=== PATIENT | male | born 1935 | race African-American/Black ===

== ENCOUNTER 2017-04-26 15:57 | Inpatient (IN) ==
[2017-04-26] MEDS ORDERED: ONDANSETRON 4 MG/2 ML VIAL IV PRN (18:24)
[2017-04-26] MEDS ORDERED: ALBUTEROL/IPRATROPIUM 3 ML NEB RESP TX PRN (18:24)
[2017-04-26] MEDS ORDERED: ACETAMINOPHEN 325 MG TABLET PO PRN (18:24)
[2017-04-26] MEDS ORDERED: traMADol 50 MG TABLET PO PRN (18:24)
[2017-04-26] MEDS: SODIUM CHLORIDE 0.45% 1,000 ML IV SCH (18:40)
--- NOTE | 2017-04-26 19:22 | XRay Report ---
History: Shortness of breath Date: 04/26/2017 Study: Chest x-ray PA and lateral Comparison exam: July 25, 2016 The cardiac silhouette is not enlarged. There is no mediastinal mass. There is mild aortic arch calcification. The pulmonary vasculature is not engorged. There are some prominent changes of bullous emphysema. There is mild platelike scarring in the lung bases. There is no gross pneumonia.. Osseous structures are unchanged. Impression: Prominent changes of bullous emphysema. No definite acute inflammatory infiltrate PROCEDURE INTERPRETED AT [facility] DEPARTMENT OF RADIOLOGY Final Report Signed by: Dr. Sara Sow
[2017-04-26 19:27] LABS: Basophils % 0.4 % (0.0-0.8); Eosinophils % 0.6 % (0.00-10.9); Hematocrit 32.3 VOL% (42.0-52.0); Hemoglobin 10.3 GM/DL (14.0-18.0); Immature Granulocytes % 0.4 %; Immature Granulocytes Absolute 0.03 #; Lymphocytes # 1.9 10*3/uL (1.4-4.0); Lymphocytes % 25.8 % (21.2-54.2); Mean Corpuscular HGB Conc 31.9 GM/DL (32-36); Mean Corpuscular Hemoglobin 29 PG (27-34); Mean Platelet Volume 9.1 FL (9.6-12.0); Monocytes # 0.7 10*3/uL (0.11-0.8); Monocytes % 9.9 % (1.7-12.7); Neutrophils # 4.6 10*3/uL (1.4-7.4); Neutrophils % 62.9 % (38.7-73.9); Platelet Count 325 T/CUMM (130-400); Red Blood Count 3.55 MC/CUMM (3.8-5.5); Red Cell Distribution Width 13.9 % (9.3-17.3); White Blood Count 7.3 T/CUMM (4-12)
[2017-04-26 19:58] LABS: Lymphocytes 18 % (20-55); Platelet Estimate Normal; Polychromasia Slight; Segmented Neutrophils 75 % (50-85); Total Cells Counted 100
[2017-04-26 20:01] LABS: Albumin 2.4 G/DL (3.4-5.0); Bilirubin,Total 0.4 MG/DL (0.2-1.0); Calcium 8.7 MG/DL (8.5-10.1); Ferritin 172.6 ng/ml (26-388); Magnesium 2.1 MG/DL (1.8-2.4); Osmolality,Calculated 281.4 MOS/KG (273-304); Potassium 3.8 MMOL/L (3.5-5.1); Prealbumin 13.5 MG/DL (20-40); Thyroid Stimulating Hormone 2.27 uIU/ml (0.358-3.74); Total Protein 8.1 G/DL (6.4-8.3)
[2017-04-26 20:28] LABS: Sedimentation Rate-Westergren 90 MM/HR (0-20)
[2017-04-26 20:59] LABS: Apearance,Urine CLOUDY (Clear); Bacteria,Urine Many /HPF (Few); Bilirubin,Urine Negative (Negative); Blood, Urine Small mg/dL (Negative); Glucose,Urine (UA) Negative (Negative); Ketones,Urine Negative (Negative); Mucus,Urine Occasional /LPF (Occasional); Nitrite,Urine Negative (Negative); Protein,Urine 100 MG/DL; RBC,Urine 58 /HPF (0-4); Urine Color Yellow (Yellow); Urine Specific Gravity 1.014 (1.001-1.035); Urine Urobilinogen < 2.0 EU/DL (0.2-1.0); WBC,Urine 1932 /HPF (0-6)
[2017-04-26 21:03] LABS: Folate 12.2 NG/ML (5.4-24.0)
--- NOTE | 2017-04-26 21:37 | Family Practice History&Phys ---
Assessment and Plan (1) Joint pain probable rheumatoid arthritis Status: Acute Assessment and plan: Patient has significant joint pain and swelling involving multiple joints. Recent lab suggestive of rheumatoid arthritis. Current Visit: Yes (2) Significant weight loss Status: Acute Assessment and plan: Significant weight loss over the last several weeks of unknown etiology. Will begin workup Current Visit: Yes (3) Progressive weakness Status: Acute Assessment and plan: Progressive weakness over the last several weeks unknown etiology Current Visit: Yes (4) Status post carcinoma urinary bladder Status: Chronic Assessment and plan: History of urinary bladder cancer has cystostomy bag present Current Visit: Yes (5) Status post carcinoma prostate Status: Chronic Assessment and plan: History of carcinoma of the prostate Current Visit: Yes (6) Chronic obstructive pulmonary disease Status: Chronic Assessment and plan: We will start on appropriate respiratory treatments Current Visit: Yes History of Present Illness Chief complaint: Weakness, weight loss, severe joint pain History of present illness: Mr. Green is a 81 year old male Patient is an 81-year-old black male well-known to me who is brought in by family stating that he was unable to stand or ambulate due to severe joint pain and stiffnessand. The is also lost 16 pounds in the last few months. Patient has become progressively weaker overall. I did recent lab studies and is worse degrees sedimentation rate was 120.His RA titer was positive but NICOLE was negative. Chest x-ray revealed severe emphysema. CT scan of the abdomen and pelvis on an outpatient basis revealed severe bullous emphysema with chronic scarring and atelectasis. He had minimal left hydronephrosis with dilatation of the left ureter no stones were noted. I had wanted to do further studies and refer to cleat maker but patient refused. His symptoms have significantly worsened in the last several weeks and he is now unable to ambulate or get out of the chair without assistance. He has no appetite and has continued decline. He is now they are in agreement to see a cleat maker but it will take several weeks to obtain an appointment. In view of the overall decline, I have elected to admit for further evaluation therapy. I am uncertain of the weight loss and he may need further GI and other evaluation. In view of history we will admit further evaluation therapy. Home Medications Medication Instructions Recorded Confirmed Type Diclofenac Potassium Tab [Cataflam] 50 mg PO DAILY 04/26/17 04/26/17 History RX: Nabumetone 750 mg PO DAILY 04/26/17 04/26/17 History Sulfameth/Trimeth 800-160 Tab 1 tablet PO BID 04/26/17 04/26/17 History [Bactrim DS Tab] Allergies Allergy/AdvReac Type Severity Reaction Status Date / Time No Known Allergies Allergy Unverified 07/25/16 21:03 Medical,Surgical,& Family Hx - Medical History Cardio: History of: Hypertension HEENT: History of: Ear Problem, Eye Problem Endocrine: History of: Dyslipidemia Rheumatology: History of;: Rheumatoid Arthritis Respiratory: History of: Pneumonia (3 years ago) Genitourinary: History of: Prostate Problems (History of prostate carcinoma), Genitourinary Cancer (History of urinary bladder cancer presently has a cystostomy bag) Gastrointestinal: History of: GI Problems (History of carcinoma of the bladder) Musculoskeletal: History of: Musculoskeletal Problems - Surgical History Thoracic Surgeries: Patient denies;: Lobectomy Neurologic Surgeries: Patient denies: Neurologic Surgery Reproductive Surgeries: Surgical HX of;: Genitourinary Surgery (bladder removal , urostomy), Prostate Surgery (TURP) - Social History Smoking Status: Former smoker Frequency of Alcohol Use: None Type of Drug Use: None Marital Status: Lives With:: Spouse Functional capacity: uses cane/walker Exam - Constitutional Vitals: Period Temp Pulse Resp BP Sys/Chen Pulse Ox Last 24 Hr 96.9 F-98.4 F 84-90 18-20 107-121/61-63 94-97 General appearance: mild distress - Head Head exam: Present: normal inspection - Eye Pupils: Present: DRU - ENT ENT exam: Present: normal exam - Neck Neck exam: Present: normal inspection - Respiratory Respiratory exam: Present: clear to auscultation bilaterally - Cardiovascular Cardiovascular exam: Present: irregular rhythm - GI/Abdominal GI/Abdominal exam: Present: other (Cystoscopy bag present) - Extremities Exam Extremities exam: Present: edema - Back Exam Back exam: Present: muscle spasm - Neurological Exam Neurological exam: Present: alert, oriented X3 - Psychiatric Psychiatric exam: Present: normal affect - Skin Skin exam: Present: normal color Results - Labs CBC & BMP: 04/26/17 19:18 04/26/17 19:18
[2017-04-26] MEDS: DOCUSATE SODIUM 100 MG CAPSULE PO SCH (21:59)
[2017-04-26] MEDS: methylPREDNISolone SOD SUC 40 MG/1 ML VIAL IV SCH (21:59)
--- NOTE | 2017-04-26 22:53 | Ultrasound Report ---
History: Hydronephrosis Date: 04/26/2017 Study: Renal ultrasound bilateral kidneys only Comparison exam: January 03, 2017 Real-time ultrasound images are captured and archived. The right kidney measures 9.4 x 5.0 x 5.0 cm and is minimally hyperechoic to the hepatic parenchyma. There is a 9 mm simple cyst in the mid right kidney. The left kidney measures 9.5 x 6.3 x 5.5 cm and contains a small 8 mm simple cyst at its mid to lower aspect. There is no obvious hydronephrosis. There is no perinephric fluid. There is gross color Doppler flow to either kidney. Impression: No hydronephrosis is identified. Medical renal parenchymal disease of a mild degree. Benign simple cysts PROCEDURE INTERPRETED AT [facility] DEPARTMENT OF RADIOLOGY Final Report Signed by: Dr. Sara Sow
[2017-04-27] MEDS: methylPREDNISolone SOD SUC 40 MG/1 ML VIAL IV SCH ×3 (04:51→20:22)
[2017-04-27 06:04] LABS: Risk Ratio 3.81; VLDL CHOLESTEROL 13.6 MG/DL
[2017-04-27 06:47] LABS: Hematocrit 31.2 VOL% (42.0-52.0); Hemoglobin 10.1 GM/DL (14.0-18.0); Immature Granulocytes % 0.6 %; Immature Granulocytes Absolute 0.03 #; Lymphocytes # 1.1 10*3/uL (1.4-4.0); Lymphocytes % 20.5 % (21.2-54.2); Mean Corpuscular HGB Conc 32.4 GM/DL (32-36); Mean Corpuscular Hemoglobin 29 PG (27-34); Mean Corpuscular Volume 90.4 FL (87-102); Mean Platelet Volume 9.9 FL (9.6-12.0); Monocytes # 0.1 10*3/uL (0.11-0.8); Monocytes % 1.7 % (1.7-12.7); Neutrophils % 77.2 % (38.7-73.9); Platelet Count 326 T/CUMM (130-400); Red Blood Count 3.45 MC/CUMM (3.8-5.5); Red Cell Distribution Width 14.1 % (9.3-17.3); White Blood Count 5.2 T/CUMM (4-12)
[2017-04-27 06:58] LABS: Osmolality,Calculated 282.3 MOS/KG (273-304); Potassium 4.5 MMOL/L (3.5-5.1)
[2017-04-27 07:17] LABS: Atypical Lymphocytes Few; Hypochromasia 1+; Lymphocytes 18 % (20-55); Platelet Estimate Adequate; Segmented Neutrophils 80 % (50-85); Total Cells Counted 100
[2017-04-27] MEDS: SODIUM CHLORIDE 0.45% 1,000 ML IV SCH ×2 (07:50→23:00)
[2017-04-27] MEDS: PANTOPRAZOLE 40 MG TABLET PO SCH (09:55)
[2017-04-27] MEDS: DOCUSATE SODIUM 100 MG CAPSULE PO SCH ×2 (09:55→20:22)
[2017-04-27] MEDS: LEVOFLOXACIN INJ 500 MG in PREMIX 1 EACH IV SCH (18:15)
--- NOTE | 2017-04-27 18:22 | Family Practice Progress Note ---
Family Practice - PN: Subj Interval history: Patient states she feels better this a.m. His joint pain and swelling have significantly improved since starting the steroids. His urine is suggestive of a urinary tract infection. Urine culture is pending. The patient had been on Septra DS for a upper respiratory infection prior to the culture so it may not the groin he bacteria. His other labs are stable except for elevated sedimentation rate and significantly elevated rheumatoid factor. His appetite improved this a.m. and his weight loss may be secondary to the joint pain and weakness. Will have patient increase activity today. We'll start on Levaquin now that cultures have been obtained. We'll otherwise continue present evaluation and treatment plan Exam (Progress Note) - Constitutional Vitals: Period Temp Pulse Resp BP Sys/Chen Pulse Ox Last 24 Hr 96.9 F-97.6 F 61-90 18-20 102-128/53-71 92-95 Results - Labs CBC & BMP: 04/27/17 04:46 04/27/17 04:46 Assessment and Plan (1) Joint pain probable rheumatoid arthritis Status: Acute Assessment and plan: Patient has significant joint pain and swelling involving multiple joints. Recent lab suggestive of rheumatoid arthritis. Current Visit: Yes (2) Significant weight loss Status: Acute Assessment and plan: Significant weight loss over the last several weeks of unknown etiology. Will begin workup Current Visit: Yes (3) Progressive weakness Status: Acute Assessment and plan: Progressive weakness over the last several weeks unknown etiology Current Visit: Yes (4) Status post carcinoma urinary bladder Status: Chronic Assessment and plan: History of urinary bladder cancer has cystostomy bag present Current Visit: Yes (5) Status post carcinoma prostate Status: Chronic Assessment and plan: History of carcinoma of the prostate Current Visit: Yes (6) Chronic obstructive pulmonary disease Status: Chronic Assessment and plan: We will start on appropriate respiratory treatments Current Visit: Yes
[2017-04-28] MEDS: methylPREDNISolone SOD SUC 40 MG/1 ML VIAL IV SCH ×3 (04:37→20:23)
[2017-04-28 06:31] LABS: Basophils % 0.1 % (0.0-0.8); Hemoglobin 9.6 GM/DL (14.0-18.0); Immature Granulocytes % 0.8 %; Immature Granulocytes Absolute 0.11 #; Lymphocytes # 1.3 10*3/uL (1.4-4.0); Lymphocytes % 9.4 % (21.2-54.2); Mean Corpuscular Hemoglobin 29 PG (27-34); Mean Corpuscular Volume 91.2 FL (87-102); Mean Platelet Volume 9.4 FL (9.6-12.0); Monocytes # 0.5 10*3/uL (0.11-0.8); Monocytes % 3.6 % (1.7-12.7); Neutrophils # 12.3 10*3/uL (1.4-7.4); Neutrophils % 86.1 % (38.7-73.9); Platelet Count 330 T/CUMM (130-400); Red Blood Count 3.29 MC/CUMM (3.8-5.5); White Blood Count 14.2 T/CUMM (4-12)
[2017-04-28 06:59] LABS: Hypochromasia Slight; Lymphocytes 6 % (20-55); Platelet Estimate Normal; Segmented Neutrophils 93 % (50-85); Total Cells Counted 100
[2017-04-28 07:10] LABS: Calcium 8.6 MG/DL (8.5-10.1); Potassium 4.3 MMOL/L (3.5-5.1)
--- NOTE | 2017-04-28 08:17 | Family Practice Progress Note ---
Family Practice - PN: Subj Interval history: Patient was admitted with severe weakness weight loss and joint pain. He has lost 18 pounds in the last 6-8 weeks and was unable to ambulate due to joint pain and stiffness. His sedimentation rate and rheumatoid factor are significantly elevated. His joint complaints have progressively gotten worse in the last 6 weeks. I saw him in the clinic 2 weeks ago and tried to arrange a rheumatology appointment but patient refused at that time. The patient should continue to lose weight and was unable to stand or ambulate at time of admission. He apparently has a urinary tract infection and culture is pending. He has had a dramatic improvement since starting on IV steroids. He is now eating joint pain and swelling is almost totally resolved. No question that most of his symptoms are related to his inflammatory process. We will need to check results of urine culture. Will have patient increase activity today and could be discharged over the weekend if improved. If discharge she needs to be discharged on oral prednisone. We are in the process of trying to arrange a rheumatology appointment. Exam (Progress Note) - Constitutional Vitals: Period Temp Pulse Resp BP Sys/Chen Pulse Ox Last 24 Hr 97.3 F-98.3 F 60-90 18-22 102-133/53-70 92-100 Results - Labs CBC & BMP: 04/28/17 06:08 04/28/17 06:08 Assessment and Plan (1) Joint pain probable rheumatoid arthritis Status: Acute Assessment and plan: Patient has significant joint pain and swelling involving multiple joints. Recent lab suggestive of rheumatoid arthritis. Current Visit: Yes (2) Significant weight loss Status: Acute Assessment and plan: Significant weight loss over the last several weeks of unknown etiology. Will begin workup Current Visit: Yes (3) Progressive weakness Status: Acute Assessment and plan: Progressive weakness over the last several weeks unknown etiology Current Visit: Yes (4) Status post carcinoma urinary bladder Status: Chronic Assessment and plan: History of urinary bladder cancer has cystostomy bag present Current Visit: Yes (5) Status post carcinoma prostate Status: Chronic Assessment and plan: History of carcinoma of the prostate Current Visit: Yes (6) Chronic obstructive pulmonary disease Status: Chronic Assessment and plan: We will start on appropriate respiratory treatments Current Visit: Yes
[2017-04-28] MEDS: DOCUSATE SODIUM 100 MG CAPSULE PO SCH ×2 (08:51→20:23)
[2017-04-28] MEDS: PANTOPRAZOLE 40 MG TABLET PO SCH (08:51)
[2017-04-28] MEDS: LEVOFLOXACIN INJ 500 MG in PREMIX 1 EACH IV SCH (20:22)
[2017-04-29] MEDS: SODIUM CHLORIDE 0.45% 1,000 ML IV SCH ×3 (03:00→16:19)
[2017-04-29 04:20] LABS: Basophils % 0.1 % (0.0-0.8); Hematocrit 32.1 VOL% (42.0-52.0); Hemoglobin 10.1 GM/DL (14.0-18.0); Immature Granulocytes % 1.2 %; Immature Granulocytes Absolute 0.18 #; Lymphocytes # 1.7 10*3/uL (1.4-4.0); Lymphocytes % 11.3 % (21.2-54.2); Mean Corpuscular HGB Conc 31.5 GM/DL (32-36); Mean Corpuscular Hemoglobin 29 PG (27-34); Mean Corpuscular Volume 91.2 FL (87-102); Mean Platelet Volume 9.6 FL (9.6-12.0); Monocytes # 0.4 10*3/uL (0.11-0.8); Monocytes % 2.7 % (1.7-12.7); Neutrophils % 84.7 % (38.7-73.9); Platelet Count 381 T/CUMM (130-400); Red Blood Count 3.52 MC/CUMM (3.8-5.5); Red Cell Distribution Width 14.3 % (9.3-17.3); White Blood Count 15.4 T/CUMM (4-12)
[2017-04-29 04:44] LABS: Calcium 8.1 MG/DL (8.5-10.1)
[2017-04-29] MEDS: methylPREDNISolone SOD SUC 40 MG/1 ML VIAL IV SCH ×3 (05:05→20:37)
--- NOTE | 2017-04-29 07:27 | Family Practice Progress Note ---
Family Practice - PN: Subj Interval history: Same this morning. He had an inflammatory arthritis with a elevated sedimentation rate of 130. Does have significant rheumatoid arthritis but the prednisone has helped him immensely. He is alert and are looking at discharging him either later on today or possibly tomorrow but patient is a little bit weak. If he is eating well today and able to sit up and walk will go ahead and discharge. Exam (Progress Note) - Constitutional Vitals: Period Temp Pulse Resp BP Sys/Chen Pulse Ox Last 24 Hr 96.9 F-97.9 F 60-75 18-20 120-136/58-71 90-96 Exam: Generally stable is alert and oriented although he does not hear very well HEENT essentially negative neck is supple trachea midline Vascular rate regular no gallop or rub Lungs clear without any respiratory distress or shortness of breath Abdomen soft nondistended Extremities no clubbing cyanosis or Results - Labs CBC & BMP: 04/29/17 03:48 04/29/17 03:48 Assessment and Plan (1) Joint pain probable rheumatoid arthritis Status: Acute Assessment and plan: 04/29/2017: We will continue prednisone and hopefully patient will be strong enough to be discharged today and at least minimal Current Visit: Yes
[2017-04-29] MEDS: DOCUSATE SODIUM 100 MG CAPSULE PO SCH ×2 (09:23→20:39)
[2017-04-29] MEDS: PANTOPRAZOLE 40 MG TABLET PO SCH (09:23)
[2017-04-29] MEDS: LEVOFLOXACIN INJ 500 MG in PREMIX 1 EACH IV SCH (20:41)
[2017-04-30] MEDS: methylPREDNISolone SOD SUC 40 MG/1 ML VIAL IV SCH (06:11)
[2017-04-30 07:48] VITALS: BP 152/84
[2017-04-30] MEDS: PANTOPRAZOLE 40 MG TABLET PO SCH (08:18)
[2017-04-30] MEDS: DOCUSATE SODIUM 100 MG CAPSULE PO SCH (08:18)
--- NOTE | 2017-04-30 08:49 | Discharge Summary ---
Hospital Course - Hospital Course Hospital Course: Elderly black male came into the hospital with severe arthritis and also an 18 pound weight loss due to this with decline. He had a severe inflammatory process going on with elevated ESR of around 130. And his rheumatoid factor was elevated. Has not seen her outpatient volleyball referee but we are trying to get set up to get this done. The goal in the hospital was get his inflammatory arthritis under control which has been done, he is now stable and ambulating and able to go to the bathroom now etc. We are going to discharge him and have him see his primary doctor on oral steroids as well as NSAIDs and get him set up to see the volleyball referee as noted. Diagnosis - Discharge Diagnosis (1) Joint pain probable rheumatoid arthritis Status: Acute Discharge Plan - Discharge Data Disposition: Disch To Home/Self Care Condition at Discharge: Stable Discharge Diet: advance to your usual diet Activity: resume usual activities as tolerated Hygiene: no restrictions Weight Bearing at Discharge: weight bear as tolerated Driving: not until seen by doctor Contact your physician if you experience:: fever over 101, Shortness of breath, pain uncontrolled by pain medications - Discharge Medications New Acetaminophen Tab [Tylenol Tab] 650 mg PO Q6H PRN tablet PRN Reason: Fever, Headache, Mild Pain Pantoprazole Tab [Protonix Tab] 40 mg PO DAILY #30 tablet traMADol TAB [Ultram] 50 mg PO Q6H PRN #30 tablet PRN Reason: Pain predniSONE TAB [PredniSONE] 10 mg PO DIRECTED #45 tablet Continue Nabumetone 750 mg PO DAILY Discontinued Diclofenac Potassium Tab [Cataflam] 50 mg PO DAILY - Follow Up or Referral Follow Up: Adam Castaneda DO [Primary Care Provider] - 1 Month - Forms/Instructions Exam - Constitutional Vitals: Period Temp Pulse Resp BP Sys/Chen Pulse Ox Last 24 Hr 97.2 F-97.9 F 61-79 18-22 133-161/69-85 90-100 Discharge Results Procedures and tests throughout hospitalization: Pending Orders 04/26/17 19:18 Blood Culture Stat Labs on day of discharge: Labs from last 24 hours 04/30/17 01:08 POC Glucose 128 H Preliminary micro results at discharge 04/26/17 19:18 Blood Culture - Preliminary Blood No growth at 3 days 04/26/17 19:18 Blood Culture - Preliminary Blood No growth at 3 days DS: Provider Date of admission: 04/26/17 16:07 Primary care physician: Adam Castaneda DO Attending physician on admission: Adam Castaneda DO Consults: 04/26/17 17:10 Consult to Dietitian [CONS] Routine Reason for Dietitian: Other Discharging clinician: Darek Bullock DO
--- NOTE | 2017-05-08 16:31 | Physician Query Form ---
CLICK EDIT DOCUMENT TO SELECT QUERY ANSWER --> OK --> SIGN Jacqueline Che RN, CCDS Certified Clinical Chief Green Officer W) [phone] (f) [phone] [email or web address] PROVIDERS: Make your selection(s) from the choices in EACH section by typing an "x" and enter comments in the comment section. Please use your independent medical judgment in providing your response. This request does not imply that any particular answer is desired or expected. CLINICAL INDICATORS: (Providers should not edit this section) "His urine is suggestive of a urinary tract infection. Urine culture is pending." Urine C&S grew E. Coli >100,000 colony count, treated w/ IV Levaquin Based on the above, could you clarify the appropriate diagnosis, if significant , that supports the above abnormalities and additional evaluation, monitoring, and/or treatment rendered: ( x) Patient was treated for E. Coli UTI ( ) UTI was ruled out ( ) Other, please specify: ( ) Clinically unable to determine COMMENTS: PLEASE ALSO DOCUMENT RESPONSE IN PROGRESS NOTES AND/OR DISCHARGE SUMMARY Use of terms such as suspected, likely, or probable (associated with a specific diagnosis that is being evaluated, monitored, or treated as if it exists) are acceptable and can be restated in the discharge summary if not ruled out. MTDD
== END 2017-04-30 09:45 | disposition home or self-care (01) | DRG 546 ==
LOC: N.2E 16:07
PROVIDERS: ADMIT Family Medicine; ATTEND Family Medicine

== ENCOUNTER 2017-06-09 09:03 | Inpatient (IN) ==
[2017-06-09] MEDS ORDERED: SODIUM CHLORIDE 0.9% 1,000 ML IV STA ×2 (09:57→11:26)
[2017-06-09] MEDS ORDERED: cefTRIAXone 1,000 MG in SODIUM CHLORIDE 0.9% 100 ML IV STA (09:57)
--- NOTE | 2017-06-09 10:02 | EKG Report ---
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
[2017-06-09 10:03] LABS: Basophils % 0.1 % (0.0-0.8); Eosinophils % 0.1 % (0.00-10.9); Hematocrit 41.4 VOL% (42.0-52.0); Hemoglobin 13.7 GM/DL (14.0-18.0); Immature Granulocytes % 0.8 %; Immature Granulocytes Absolute 0.15 #; Lymphocytes # 1.5 10*3/uL (1.4-4.0); Lymphocytes % 8.5 % (21.2-54.2); Mean Corpuscular HGB Conc 33.1 GM/DL (32-36); Mean Corpuscular Hemoglobin 30 PG (27-34); Mean Corpuscular Volume 91.4 FL (87-102); Mean Platelet Volume 9.1 FL (9.6-12.0); Monocytes # 0.8 10*3/uL (0.11-0.8); Monocytes % 4.3 % (1.7-12.7); Neutrophils # 15.5 10*3/uL (1.4-7.4); Neutrophils % 86.2 % (38.7-73.9); Platelet Count 240 T/CUMM (130-400); Red Blood Count 4.53 MC/CUMM (3.8-5.5); Red Cell Distribution Width 19.9 % (9.3-17.3)
[2017-06-09 10:12] LABS: Apearance,Urine CLOUDY (Clear); Bacteria,Urine Moderate /HPF (Few); Bilirubin,Urine Negative (Negative); Blood, Urine Moderate mg/dL (Negative); Glucose,Urine (UA) Negative (Negative); Ketones,Urine 5 mg/dL (Negative); Mucus,Urine Occasional /LPF (Occasional); Nitrite,Urine Positive (Negative); Protein,Urine 30 MG/DL; RBC,Urine 128 /HPF (0-4); Urine Color Yellow (Yellow); Urine Specific Gravity 1.011 (1.001-1.035); WBC,Urine 73 /HPF (0-6)
[2017-06-09 10:21] LABS: Lactic Acid 1.5 MMOL/L (0.4-2.0)
[2017-06-09] MEDS ORDERED: cefTRIAXone 1,000 MG VIAL ONE (10:22)
[2017-06-09 10:29] LABS: Allen Test Positive
[2017-06-09 10:30] LABS: ABG Base Excess -0.6 MMOL/L (-2.5-2.5); ABG HCO3 23.9 MMOL/L (20-26); ABG Oxygen Saturation 95.4 % (95-100); ABG PCO2 25.9 MM HG (35-48); ABG PH 7.515 (7.35-7.45); ABG PO2 79.3 MM HG (80-95)
--- NOTE | 2017-06-09 10:34 | XRay Report ---
XR chest 1V portable Indication: Cough, shortness of breath Comparison: Chest x-ray dated April 26, 2017 Technique: Single frontal view of the chest. Findings: The cardiomediastinal silhouette is stable in configuration. Chronic/emphysematous change of the lungs. There is patchy opacification of the left lower lung suspicious for pneumonia. Visualized osseous and surrounding soft tissue structures appear grossly unchanged. IMPRESSION: As above. PROCEDURE INTERPRETED AT [facility] DEPARTMENT OF RADIOLOGY Final Report Signed by: Dr Ambrocio Allen
[2017-06-09 10:37] LABS: Albumin 2.8 G/DL (3.4-5.0); Osmolality,Calculated 273.1 MOS/KG (273-304); Potassium 3.9 MMOL/L (3.5-5.1); Total Protein 7.5 G/DL (6.4-8.3)
--- NOTE | 2017-06-09 12:44 | Emergency Department Note ---
Semaj Stubbs Manpreet, am scribing for, and in the presence of, Ibrahima Torres Jr., MD 10:01. Brian Stubbs Marvin Jr., MD, personally performed the services described in this documentation, ascribed by Henry Cha in my presence, and it is both accurate and complete . Arrival - Arrival Chief Complaint: Shortness of Breath Stated Complaint: fever,weakness,spitting up blood ED Nursing Triage Note: Fever with generalized weakness and coughing up bright red blood Mode of Arrival: Wheelchair Limitations: No Limitations Source: Patient, Family - History of Present Illness HPI Narrative: Pt is a 82 y/o male who presents to the ED with CC of having a fever since yesterday. Pt is accompanied by his daughter, who is his main historian. The daughter states she went to check on the pt this AM and took a temperature which was 101.6 F. The repeat temperature after 45 minutes was 98 F. Pt lives with his and has been appearing more weak than usual to the family. The pt has lost 20 pounds in the last 4-6 months. Pt is also SOB and the daughter reports the pt coughing up blood. The daughter states there was only blood present in the cough discharge and was bright red. Pt's PCP is Dr. Castaneda who told the daughter to bring the pt to the ED. No other pains/complaints reported to the ED. Onset (ago): day(s) (06/08/17) Consistency: constant Severity: moderate Severity scale (1-10): 3 Allergies/Adverse Reactions: Allergies Allergy/AdvReac Type Severity Reaction Status Date / Time No Known Allergies Allergy Unverified 07/25/16 21:03 Home Medications: Home Medications Medication Instructions Recorded Confirmed Type Nabumetone 750 mg PO DAILY 04/26/17 04/26/17 History Acetaminophen Tab [Tylenol Tab] 650 mg PO Q6H PRN tablet 04/30/17 Rx Pantoprazole Tab [Protonix Tab] 40 mg PO DAILY #30 tablet 04/30/17 Rx predniSONE TAB [PredniSONE] 10 mg PO DIRECTED #45 tablet 04/30/17 Rx traMADol TAB [Ultram] 50 mg PO Q6H PRN #30 tablet 04/30/17 Rx Review of System - Review of System 12 point system: reviewed and no additional remarkable complaints except as stated - Review of System Constitutional: Present: chills, fever, weakness, weight loss. Absent: diaphoresis Head/Ears/Nose/Throat: Absent: sore throat Respiratory: Present: cough (With blood present), respiratory distress Cardiovascular: Absent: chest pain Gastrointestinal: Absent: abdominal pain, nausea, vomiting, hematemesis Genitourinary male: Absent: dysuria Neurological: Absent: headache, weakness, numbness, paresthesias, confusion Medical,Surgical,& Family Hx - Medical History Cardio: History of: Hypertension HEENT: History of: Ear Problem, Eye Problem Endocrine: History of: Dyslipidemia Rheumatology: History of;: Rheumatoid Arthritis Respiratory: History of: Pneumonia (3 years ago) Genitourinary: History of: Prostate Problems (History of prostate carcinoma), Genitourinary Cancer (History of urinary bladder cancer presently has a cystostomy bag) Gastrointestinal: History of: GI Problems (History of carcinoma of the bladder) Musculoskeletal: History of: Musculoskeletal Problems - Surgical History Thoracic Surgeries: Patient denies;: Lobectomy Neurologic Surgeries: Patient denies: Neurologic Surgery Reproductive Surgeries: Surgical HX of;: Genitourinary Surgery (bladder removal , urostomy), Prostate Surgery (TURP) - Social History Smoking Status: Never smoker Frequency of Alcohol Use: None Type of Drug Use: None Exam Physical Examination: General: Well-developed well-nourished, no apparent distress. Vital signs reviewed which shows a low blood pressure, low O2 sats and tachycardia Head: Normocephalic, atraumatic. Eyes: PERRLA, EOMI. Nose: No obvious acute deformities or discharge. Mouth: No obvious acute injury. Neck: Full range of motion without obvious pain. No midline tender to palpation. Lymphatic: no significant lymphadenopathy noted. Lungs: Clear to auscultation bilaterally, normal and equal air movement bilaterally, no obvious rales or wheezing. Heart: Tachycardia, no obvious mummers. Abdomen: Soft nontender, nondistended, normal active bowel sounds. Urethrostomy bag noted. Skin: No obivous acute lesions noted Musculoskeletal: No gross deformities. Neurological: No focal findings, cranial nerves II through XII grossly normal. Psychiatric: Appropriate mood.. : Deferred Vital Signs: Vital Signs Temperature 99.9 F H 06/09/17 09:30 Pulse Rate 83 06/09/17 12:00 Respiratory Rate 19 06/09/17 12:00 Blood Pressure 96/59 06/09/17 12:00 O2 Sat by Pulse Oximetry 97 06/09/17 12:00 Course Course Narrative: Differential diagnosis: There seems to be an obvious infection and this likely could be pneumonia or urinary tract infection with sepsis - Reevaluation(s) Reevaluation #1: Patient seems to look more stable than his vitals look. his blood pressures 84/ 56, heart rate 88, O2 sat 97%, patient seems to be alert and interactive and in no distress. I discussed this patient with Dr. Ann who accepts the patient for admission to the ICU for Dr. Castaneda Time: 12:39 Results - Labs CBC & BMP: 06/09/17 09:53 06/09/17 09:53 Lab Results: I have reviewed the patients labs Labs: Laboratory Tests 06/09/17 06/09/17 06/09/17 09:53 09:53 09:53 WBC 18.0 H RBC 4.53 Hgb 13.7 L Hct 41.4 L MCV 91.4 MCH 30 MCHC 33.1 RDW 19.9 H Plt Count 240 MPV 9.1 L Neut % (Auto) 86.2 H Lymph % (Auto) 8.5 L Cecil % (Auto) 4.3 Eos % (Auto) 0.1 Baso % (Auto) 0.1 Neut # (Auto) 15.5 H Lymph # (Auto) 1.5 Cecil # (Auto) 0.8 Eos # (Auto) 0.0 Baso # (Auto) 0.0 Immature Gran % 0.8 Nucleated RBC % 0.0 Immature Gran # 0.15 Nucleated RBCs # 0.00 Immature Plt Fraction 0.0 Lactic Acid 1.5 Urine Color Yellow Urine Appearance Cloudy Urine pH 7.0 Ur Specific [place] 1.011 Urine Protein 30 Urine Glucose (UA) Negative Urine Ketones 5 Urine Blood Moderate Urine Nitrate Positive H Urine Bilirubin Negative Urine Urobilinogen 2.0 H Urine Leukocytes Moderate H Urine RBC 128 Urine WBC 73 Urine Bacteria Moderate Urine Mucus Occasional Ur Culture Indicated? Results to follow Laboratory Tests 06/09/17 10:16 ABG pH 7.515 H ABG pCO2 25.9 L ABG pO2 79.3 L ABG HCO3 23.9 ABG Total CO2 18.0 L ABG O2 Saturation 95.4 ABG Base Excess -0.6 FiO2 32.00 Laboratory Tests 06/09/17 09:53 Sodium 135 L Potassium 3.9 Chloride 104 Carbon Dioxide 23 Anion Gap 11.9 BUN 23 H Creatinine 1.10 GFR Calculation 79 BUN/Creatinine Ratio 20.00 Glucose 92 Calculated Osmolality 273.1 Lactic Acid 1.5 Calcium 9.0 Total Bilirubin 1.00 AST 11 ALT 20 Alkaline Phosphatase 56 Total Protein 7.5 Albumin 2.8 L Globulin 4.7 H Albumin/Globulin Ratio 0.5 L - EKG EKG results: interpreted by ERMD (Heart rate 105, normal sinus rhythm, no obvious acute ST changes, nonspecific EKG) - Diagnostic Findings Procedure: Chest x-ray: report reviewed by me, image reviewed by me (The cardiomediastinal silhouette is stable in configuration. Chronic/emphysematous change of the lungs. There is patchy opacification of the left lower lung suspicious for pneumonia. Visualized osseous and surrounding soft tissue structures appear grossly unchanged.) Critical Care Time Critical Care Time: Yes Total Critical Care Time: 32 Attestation: Hypotensive patient that is septic. Requiring prolonged patient care time, documentation, discussing with multiple family members for additional information, patient is full code at this time per family Disposition Clinical Impression: Pneumonia, Urinary tract infection, Sepsis, Hypotension Case discussed with: patient, patient's family Disposition: Still a Patient Condition: Guarded Time of Disposition: 12:44
[2017-06-09 14:12] LABS: Troponin I Only < 0.015 NG/ML (0.00-0.045)
[2017-06-09] MEDS ORDERED: ONDANSETRON 4 MG/2 ML VIAL IV PRN (14:20)
[2017-06-09] MEDS ORDERED: ACETAMINOPHEN 325 MG TABLET PO PRN (14:20)
--- NOTE | 2017-06-09 14:59 | Family Practice History&Phys ---
Assessment and Plan (1) Left lower lobe pneumonia Status: Acute Assessment and plan: 06/09/2017: Cultures of blood been obtained. His history of hemoptysis I will consult pulmonary. Current Visit: Yes (2) Hemoptysis Status: Acute Assessment and plan: 06/09/2017: Will consult pulmonary. Current Visit: Yes (3) UTI (urinary tract infection) Status: Acute Assessment and plan: 06/09/2017: Patient begun on IV Levaquin. Cultures are pending. Current Visit: Yes (4) History of bladder cancer Status: Chronic Current Visit: Yes History of Present Illness Chief complaint: Fever, chills and weakness History of present illness: Mr. Green is a 82 year old male Patient 82-year-old black male who is brought to the emergency room by family when they found that he was not his normal responsive self. He was found to have a temperature 101.6 at home and work over the emergency room found to have left lower lobe pneumonia as well as pyuria was 73 white cells per high-powered field. Patient states he has had some urinary frequency but has not seen any hematuria. Family relates that he has had some hemoptysis which is described is some bloody mucus. Patient has no history of lung cancer. He has had a previous history of bladder cancer and had a cholecystectomy he told me 16 years ago. He denies any other malignancies. States he is not having any pain in his chest but he has had a productive cough. Patient found to be hypotensive in the emergency room with a blood pressure as low as 81/57. It was elected placement intensive care and he was started on IV Rocephin and Zithromax Home Medications Medication Instructions Recorded Confirmed Type Nabumetone 750 mg PO DAILY 04/26/17 04/26/17 History Acetaminophen Tab [Tylenol Tab] 650 mg PO Q6H PRN tablet 04/30/17 Rx Pantoprazole Tab [Protonix Tab] 40 mg PO DAILY #30 tablet 04/30/17 Rx predniSONE TAB [PredniSONE] 10 mg PO DIRECTED #45 tablet 04/30/17 Rx traMADol TAB [Ultram] 50 mg PO Q6H PRN #30 tablet 04/30/17 Rx Allergies Allergy/AdvReac Type Severity Reaction Status Date / Time No Known Allergies Allergy Unverified 07/25/16 21:03 - Constitutional Constitutional: Present: chills, fatigue, fever(s), weakness - EENT Eyes: Absent: blurry vision, loss of vision Ears: Absent: decreased hearing, ear pain Nose, mouth and throat: Absent: hoarseness, sinus pressure, sore throat - Cardiovascular Cardiovascular: Absent: chest pain at rest, chest pain with activity, orthopnea , palpitations, PND - Respiratory Respiratory: Present: cough, dyspnea, dyspnea on exertion. Absent: wheezing - Gastrointestinal Gastrointestinal: Absent: abdominal pain, diarrhea, dyspepsia, nausea, vomiting - Genitourinary Genitourinary: Present: dysuria, urinary frequency. Absent: hematuria - Musculoskeletal Musculoskeletal: Absent: arthralgias, back pain - Neurological Neurological: Present: as per HPI, confusion. Absent: focal weakness, numbness , paresthesias - Psychiatric Psychiatric: Present: confusion. Absent: anxiety - Endocrine Endocrine: Present: fatigue. Absent: polydipsia, polyphagia - Hematologic/Lymphatic Hematologic/Lymphatic: Absent: easy bleeding, easy bruising Medical,Surgical,& Family Hx - Medical History Cardio: History of: Hypertension HEENT: History of: Ear Problem, Eye Problem Endocrine: History of: Dyslipidemia Rheumatology: History of;: Rheumatoid Arthritis Respiratory: History of: Pneumonia (3 years ago) Genitourinary: History of: Prostate Problems (History of prostate carcinoma), Genitourinary Cancer (History of urinary bladder cancer presently has a cystostomy bag) Gastrointestinal: History of: GI Problems (History of carcinoma of the bladder) Musculoskeletal: History of: Musculoskeletal Problems - Surgical History Thoracic Surgeries: Patient denies;: Lobectomy Neurologic Surgeries: Patient denies: Neurologic Surgery Reproductive Surgeries: Surgical HX of;: Genitourinary Surgery (bladder removal , urostomy), Prostate Surgery (TURP) - Family History Family History: noncontributory - Social History Smoking Status: Never smoker Frequency of Alcohol Use: None Type of Drug Use: None Exam - Constitutional Vitals: Period Temp Pulse Resp BP Sys/Chen Pulse Ox Last 24 Hr 99.9 F-99.9 F 70-120 16-22 81-97/52-68 87-99 Exam: General: Objective patient is a well-developed black male in no acute distress. Patient is able give good history, is in a state of good humor and is entertaining the nurses. HEENT: Pupils equal and reactive to light. Patent nares and airway Neck: No meningismus, adenopathy, thyromegaly. There are no auscultated carotid bruits. Cardiovascular: Regular rhythm. No murmurs or gallops Chest: Patient's noted to have left basilar rhonchi and rales posteriorly. Abdomen: Soft nontender to palpation No masses, rebound, guarding or tenderness. Patient has ileostomy bag in the right lower quadrant Neuro: Cranial nerves intact and DTRs and strength symmetric in all extremities. Patient is able to follow commands accurately and is able to give a decent history. Dermatologic: No evidence of abnormal lesions or masses. Musculoskeletal: There is no joint swelling or tenderness or deformity. Extremities: There is no calf swelling or tenderness. Results - Labs CBC & BMP: 06/09/17 09:53 06/09/17 09:53 Quality Measures - Stroke Symptom Onset Unknown: No
[2017-06-09] MEDS: DEXTROSE 5% NACL 0.45% 1,000 ML IV SCH ×2 (15:00→22:06)
[2017-06-09] MEDS: AZITHROMYCIN INJ 500 MG in SODIUM CHLORIDE 0.9% 250 ML IV SCH (15:39)
[2017-06-10] MEDS ORDERED: traMADol 50 MG TABLET PO PRN (05:51)
[2017-06-10] MEDS: DEXTROSE 5% NACL 0.45% 1,000 ML IV SCH ×3 (06:35→15:41)
--- NOTE | 2017-06-10 07:03 | Family Practice Progress Note ---
Family Practice - PN: Subj Interval history: Patient states he had a good night and nursing staff states his blood pressures been hovering around 90/60. His heart rates normal his oxygen saturation is good. He is awake, alert and quite talkative. He states he is not having any trouble breathing and I think he can go to the floor. Repeat chest x-ray is pending. Exam (Progress Note) - Constitutional Vitals: Period Temp Pulse Resp BP Sys/Chen Pulse Ox Last 24 Hr 97 F-101.4 F 63-120 12-28 81-133/51-86 87-100 Exam: Objective a well-developed pleasant gentleman is awake alert and able to give good history. He has no dyspnea at rest. Cardiovascular: Heart rates regular without murmurs or gallops. Respiratory: He does have left basilar rales posteriorly. Abdomen: Abdomen soft and nontender to palpation. Extremities: Is no calf swelling or tenderness. Results - Labs CBC & BMP: 06/09/17 09:53 06/09/17 09:53 Lab Results: I have reviewed the past 24 hour labs Assessment and Plan (1) Left lower lobe pneumonia Status: Acute Assessment and plan: 06/09/2017: Cultures of blood been obtained. His history of hemoptysis I will consult pulmonary. 06/10/2017: Patient is doing well clinically. We will repeat his chest x-ray this morning. Current Visit: Yes (2) Hemoptysis Status: Acute Assessment and plan: 06/09/2017: Will consult pulmonary. 06/10/2017: Pulmonary has been consulted. Current Visit: Yes (3) UTI (urinary tract infection) Status: Acute Assessment and plan: 06/09/2017: Patient begun on IV Levaquin. Cultures are pending. 06/10/2017: Cultures are pending. Current Visit: Yes (4) History of bladder cancer Status: Chronic Current Visit: Yes Quality Measures - Stroke Symptom Onset Unknown: No
[2017-06-10] MEDS: predniSONE 10 MG TABLET PO SCH ×3 (09:05→20:55)
[2017-06-10] MEDS: cefTRIAXone 1,000 MG in SODIUM CHLORIDE 0.9% 100 ML IV SCH (09:06)
--- NOTE | 2017-06-10 09:08 | XRay Report ---
XR chest 1V portable Indication: Pneumonia. Chest one view: Comparison yesterday. Increasing infiltrates in the lung bases noted, especially on the left, with the left hemidiaphragm now almost completely obscured. 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 Heart size remains normal. Impression: Worsening bibasilar infiltrates, especially on the left. PROCEDURE INTERPRETED AT [facility] DEPARTMENT OF RADIOLOGY Final Report Signed by: Andrez Heaton M.D.
[2017-06-10] MEDS: AZITHROMYCIN INJ 500 MG in SODIUM CHLORIDE 0.9% 250 ML IV SCH (14:23)
[2017-06-11] MEDS: DEXTROSE 5% NACL 0.45% 1,000 ML IV SCH ×3 (05:15→08:48)
[2017-06-11] MEDS ORDERED: ACETAMINOPHEN 325 MG TABLET PO PRN (07:24)
--- NOTE | 2017-06-11 07:26 | Family Practice Progress Note ---
Family Practice - PN: Subj Interval history: Patient stated he had a good night and his appetite has improved. Patient states he got up this morning and bathed and shaved himself. He feels like he is back to his old self. He denies any dyspnea is not having any abdominal pain. Chest x-ray yesterday showed some worsening of his infiltrates but he is certainly improved clinically. His urine culture is positive for E. coli with sensitivities pending. I will repeat an x-ray of his chest in the morning. Exam (Progress Note) - Constitutional Vitals: Period Temp Pulse Resp BP Sys/Chen Pulse Ox Last 24 Hr 97.1 F-98.8 F 58-91 18-30 99-151/53-70 94-99 Exam: Objective a well-developed pleasant gentleman is awake alert and able to give good history. He has no dyspnea at rest. Cardiovascular: Heart rates regular without murmurs or gallops. Respiratory: He does have left basilar rales posteriorly. Abdomen: Abdomen soft and nontender to palpation. Extremities: Is no calf swelling or tenderness. Results - Labs CBC & BMP: 06/09/17 09:53 06/09/17 09:53 Lab Results: I have reviewed the past 24 hour labs Assessment and Plan (1) Left lower lobe pneumonia Status: Acute Assessment and plan: 06/09/2017: Cultures of blood been obtained. His history of hemoptysis I will consult pulmonary. 06/10/2017: Patient is doing well clinically. We will repeat his chest x-ray this morning. 06/11/2017: Patient is improved clinically. He has no dyspnea at rest. Current Visit: Yes (2) Hemoptysis Status: Acute Assessment and plan: 06/09/2017: Will consult pulmonary. 06/10/2017: Pulmonary has been consulted. 06/11/2017: Patient continues to have some blood-tinged sputum. Current Visit: Yes (3) UTI (urinary tract infection) Status: Acute Assessment and plan: 06/09/2017: Patient begun on IV Levaquin. Cultures are pending. 06/10/2017: Cultures are pending. 06/11/2017: Urine culture positive for E. coli with sensitivities pending. Current Visit: Yes (4) History of bladder cancer Status: Chronic Current Visit: Yes Quality Measures - Stroke Symptom Onset Unknown: No
[2017-06-11] MEDS: cefTRIAXone 1,000 MG in SODIUM CHLORIDE 0.9% 100 ML IV SCH (08:44)
[2017-06-11] MEDS: predniSONE 10 MG TABLET PO SCH ×3 (08:44→21:51)
[2017-06-11] MEDS: PANTOPRAZOLE 40 MG TABLET PO SCH (08:44)
--- NOTE | 2017-06-11 08:53 | Pulmonology Consult Note ---
Assessment and Plan (1) Pneumonia Status: Acute Assessment and plan: Patient clinically and radiographically appears to have a commnity acquired pnuemonia. He is improving on antibiotics. Blood tinged sputum can certainly occur in this setting. However will get a chest CT to ensure there are no obvious endobronchial lesions, lung nodules/masses or other obvious cause of hemoptysis. If it persists and does not resolved with treatment of pneumonia, patient will need to undergo bronchoscopy. Dr Giang to assume care tomorrow Current Visit: Yes (2) Hemoptysis Status: Acute Current Visit: Yes History of Present Illness History of present illness: Mr. Green is a 82 year old male who was admitted for pneumonia 3 days ago. He endorsed some blood tinged sputum so pulmonary was consulted for further evaluation. Patient endorses getting sick about a week ago with cough, blood tinged sputum, fever and shortness of breath. He was admitted here and CXR was consistent with pnuemonia. He was started on antibiotics and has had significant clinical improvement. Patient is aformer smoker, quit in 1993. He denies ever being diagnosed with COPD or emphysema. Does not use inhalers and does not normally have any pulmonary complaints Home Medications Medication Instructions Recorded Confirmed Type Nabumetone 750 mg PO DAILY 04/26/17 04/26/17 History Acetaminophen Tab [Tylenol Tab] 650 mg PO Q6H PRN tablet 04/30/17 Rx Pantoprazole Tab [Protonix Tab] 40 mg PO DAILY #30 tablet 04/30/17 Rx traMADol TAB [Ultram] 50 mg PO Q6H PRN #30 tablet 04/30/17 06/10/17 Rx Folic Acid Tab 1 mg PO DAILY 06/09/17 06/09/17 History Methotrexate Tab 10 mg PO Q7DAY 06/09/17 06/09/17 History Multivit-Min/FA/Lycopen/Lutein 1 each PO DAILY 06/09/17 06/09/17 History [Centrum Silver Men Tablet] Vit B Comp/C/FA/Iron/Vit E 1,000 each PO DAILY 06/09/17 06/09/17 History [Vitamin B Complex Tablet] predniSONE TAB [PredniSONE] 15 mg PO DAILY 06/09/17 06/09/17 History Guaifenesin/Phenylephrine HCl 1 each PO QID PRN 06/10/17 06/10/17 History [Deconex IR 380/10] Allergies Allergy/AdvReac Type Severity Reaction Status Date / Time No Known Allergies Allergy Unverified 07/25/16 21:03 - Constitutional Constitutional: Absent: fever(s), night sweats, other - EENT Eyes: Present: as per HPI - Cardiovascular Cardiovascular: Absent: dyspnea, dyspnea on exertion - Respiratory Respiratory: Present: cough, change in phlegm color Exam (Pulmonay) H&P - Constitutional Vitals: Period Temp Pulse Resp BP Sys/Chen Pulse Ox Last 24 Hr 96.8 F-98.8 F 64-91 18-30 99-151/53-70 94-99 General appearance: normal weight, no acute distress - Head Head exam: Present: normal inspection - Neck Neck exam: Present: normal inspection. Absent: lymphadenopathy - Respiratory Respiratory exam: Present: clear to auscultation bilaterally - Cardiovascular Cardiovascular exam: Present: regular rate and rhythm - GI/Abdominal GI/Abdominal exam: Present: normal bowel sounds Medical,Surgical,& Family Hx - Medical History Cardio: History of: Hypertension No history of: Aneurysm, Cardiac Dysrhythmia, Cerebrovascular Disease, Congenital Heart Disease, CHF, CAD, [place], Pacemaker, PVD, Valvular Heart Disease, Cardiovascular Problems Psychological: No history of: Anxiety Disorders, ADHD, Behavior Problems, Bipolar Disorder, Depression, Previous Suicide Attempt, Psychiatric/Substance Abuse Tx, Schizophrenia, Psychiatric Problems Neurology: No history of: Brain Aneurysm, Cerebral Hemorrhage, Cerebrovascular Accident , Cerebral Palsy, Dementia, Migraine, Multiple Sclerosis, Parkinson's Disease, Peripheral Neuropathy, Seizures, TIA, Vertigo, Neurologocal Cancer HEENT: History of: Ear Problem, Eye Problem, Glaucoma (3 YEARS AGO) Endocrine: History of: Dyslipidemia No history of: Adrenal Disease, Diabetes Mellitus (IDDM), Diabetes Mellitus ( NIDDM), Thyroid Disorder, Endocrine Cancer, Endocrine Problems Rheumatology: History of;: Rheumatoid Arthritis No history of;: Psoriasis Respiratory: History of: Pneumonia (3 years ago) No history of: Asthma, Bronchitis, Obstructive Sleep Apnea, Pulmonary Embolism, Pulmonary Hypertension, Respiratory Problems Renal: No history of: Renal (Kidney) Cancer Genitourinary: History of: Bladder Problem, Prostate Problems (History of prostate carcinoma), Genitourinary Cancer (History of urinary bladder cancer presently has a cystostomy bag) No history of: Kidney Stones Gastrointestinal: History of: GI Problems (History of carcinoma of the bladder) Musculoskeletal: History of: Musculoskeletal Problems No history of: Amputation Hematology: No history of: Anemia, Blood Transfusion Reaction, Bleeding Problems, Sickle Cell Disease, Hematologic Cancer, Blood Disorders Other: History of: Cancer (BLADDER CA) No history of: Anesthesia Reactions, Anaphylaxis, Eczema, HIV, MRSA - Surgical History Cardiac Surgeries: Patient Denies: Femoral-Popliteal Bypass Graft, Cardiac Catheterization, Cardiac Surgery, Carotid Endarterectomy, Internal Defibrillator, Vascular Access Devices Thoracic Surgeries: Patient denies;: Organ Transplant, Lobectomy Neurologic Surgeries: Patient denies: Brain Aneurysm, Cerebral Hemorrhage, Neurologic Surgery HEENT Surgeries: Patient denies: Carotid Endarterectomy, Thyroid Surgery Abdominal Surgeries: Surgical HX of: Hernia Repair Patient denies: Abdominal Surgery, Appendectomy, Cholecystectomy, Colonoscopy , Gastric Bypass Surgery, EGD, Splenectomy Reproductive Surgeries: Surgical HX of;: Genitourinary Surgery (bladder removal , urostomy), Prostate Surgery (TURP) - Family History Family History: Reports;: Family Cancer (MOTHER, FATHER, BROTHER,), Family Stroke (GRANDMOTHER) Denies;: Family Anesthesia Reaction, Family Diabetes, Family Heart Disease, Family Hematology, Family Hypertension, Family Psychiatric Problems, Additional Family History - Social History Smoking Status: Never smoker Frequency of Alcohol Use: None Type of Drug Use: None Results - Labs CBC & BMP: 06/09/17 09:53 06/09/17 09:53 Lab Results: I have reviewed the past 24 hour labs - Diagnostic Findings Procedure: Chest x-ray: image reviewed by me, report reviewed by me (reivewed) Quality Measures - Stroke Symptom Onset Unknown: No
[2017-06-11] MEDS ORDERED: NABUMETONE 750 MG TABLET PO SCH (09:00)
--- NOTE | 2017-06-11 09:23 | CT Report ---
CT chest wo con Indication: Hemoptysis. CT CHEST WITHOUT CONTRAST DLP: 201 mGy*cm. One or more of the following dose reduction techniques was used: Automated exposure control, adjustment of the mA and/or kV according the patient size, or use of iterative reconstruction techniques. Comparison: 08/28/2014 Technique: Axial noncontrast CT images of the chest were obtained. Findings: Lack of IV contrast limits evaluation somewhat. Calcified atheromatous disease of the aorta is present with mild tortuosity. Heart size is normal. Subcentimeter mediastinal nodes are present. No bulky axillary or hilar lymphadenopathy. Calcified granuloma left hilar regions noted. End-stage lung disease is present with severe bullous emphysema primarily in the upper lobes, and progressive fibrotic scarring of both lower lobes. Honeycombing is developing in the dependent aspect of both lung bases. Increased interstitial prominence of the left lower lobe noted when compared to the right. Pleural spaces are clear. Lungs are hyperinflated. Limited views of the upper abdomen appear grossly benign. Stomach is, however, markedly distended. Impression: 1. End-stage lung disease with progressive bullous emphysema and honeycombing developing in both lower lobes. 2. Interstitial prominence of the left lower lobe noted when compared to the right. Suspect underlying interstitial pneumonia. No cavitating masses are shown. 3. Calcified atheromatous disease. PROCEDURE INTERPRETED AT [facility] DEPARTMENT OF RADIOLOGY Final Report Signed by: Andrez Heaton M.D.
[2017-06-11] MEDS: NABUMETONE 500 MG TABLET PO SCH (12:50)
[2017-06-11] MEDS: AZITHROMYCIN INJ 500 MG in SODIUM CHLORIDE 0.9% 250 ML IV SCH (14:22)
[2017-06-12 08:14] LABS: Basophils % 0.1 % (0.0-0.8); Hematocrit 36.9 VOL% (42.0-52.0); Hemoglobin 11.9 GM/DL (14.0-18.0); Immature Granulocytes % 0.9 %; Immature Granulocytes Absolute 0.12 #; Lymphocytes % 7.3 % (21.2-54.2); Mean Corpuscular HGB Conc 32.2 GM/DL (32-36); Mean Corpuscular Hemoglobin 31 PG (27-34); Mean Corpuscular Volume 95.1 FL (87-102); Mean Platelet Volume 9.6 FL (9.6-12.0); Monocytes # 0.8 10*3/uL (0.11-0.8); Monocytes % 5.5 % (1.7-12.7); Neutrophils # 12.2 10*3/uL (1.4-7.4); Neutrophils % 86.2 % (38.7-73.9); Platelet Count 207 T/CUMM (130-400); Red Blood Count 3.88 MC/CUMM (3.8-5.5); Red Cell Distribution Width 19.8 % (9.3-17.3); White Blood Count 14.1 T/CUMM (4-12)
[2017-06-12 08:40] LABS: Calcium 8.7 MG/DL (8.5-10.1); Potassium 4.5 MMOL/L (3.5-5.1)
--- NOTE | 2017-06-12 08:55 | XRay Report ---
2 view chest. Indication: Pneumonia. Comparison: June 10, 2017. The heart is normal in size. The lung hatch are hyperexpanded. There is improvement in aeration of both lung bases. Small amount of pleural thickening or pleural fluid persists on the left. Degenerative changes of both shoulders. Impression: Chronic lung changes. Interval improvement of the acute on chronic changes at the lung bases with mild pleural thickening or pleural effusion persisting on the left. PROCEDURE INTERPRETED AT [facility] DEPARTMENT OF RADIOLOGY Final Report Signed by: Dr. Adele Christiansen
[2017-06-12] MEDS: cefTRIAXone 1,000 MG in SODIUM CHLORIDE 0.9% 100 ML IV SCH (10:28)
[2017-06-12] MEDS: NABUMETONE 500 MG TABLET PO SCH (10:31)
[2017-06-12] MEDS: PANTOPRAZOLE 40 MG TABLET PO SCH (10:32)
[2017-06-12] MEDS: predniSONE 10 MG TABLET PO SCH ×3 (10:32→22:10)
[2017-06-12] MEDS: DEXTROSE 5% NACL 0.45% 1,000 ML IV SCH ×2 (10:32→22:10)
--- NOTE | 2017-06-12 11:56 | Pulmonology Progress Note ---
Pulmonary - PN: Subj Interval history: Erik Mendes, [facility], acting as scribe for Dr. Marcelino Giang Mr. Green is an 82-year-old -[place] male who was seen in initial pulmonary consultation on 06/11/[address] Reyes. This patient was admitted for pneumonia on 06/09/2017. His other pertinent past history includes hypertension , glaucoma, dyslipidemia, rheumatoid arthritis, pneumonia, history of carcinoma of the bladder, history of diverticulosis coli, history of right inguinal hernia , history of left inguinal hernia, and BPH. 06/12/2017. He was seen today along with who we presume is his grandson. In speaking with the patient today, he has had off-and-on hemoptysis over the past several months. He states that often times the blood is "mixed" bright and dark red. With his more recent hemoptysis, it has been more bright red. He was previously a smoker but states he quit smoking in 2000. At the time he quit , he was smoking approximately 1-1/2 packs per day. At the time of admission, he states that he has had mixed hemoptysis for approximately 1-1/2 weeks. Chest x-ray was reviewed and shows a left lower lung pneumonia as well as extensive emphysema. We discussed all these findings with Mr. Green and his male family member who is present. We have explained to him that in no setting his hemoptysis and normal finding. We would like to proceed with fiberoptic bronchoscopy in the morning and he is agreeable. This is been set up for approximately 9:30 AM. He also complains of left ear pain and decreased hearing. We have consulted ENT for evaluation/treatment of this. Medications have been reviewed. We made no changes today. Labs been reviewed. White count is 14,100 with 86.2% segs; H&H 11.9/36.9; platelet count 207,000; creatinine 0.0, BUN 15, electrolytes are normal Microbiology has been reviewed. Urine culture has grown Citrobacter farmeri. Blood cultures are negative thus far. MRSA screen of the nares is negative. ABGs done 06/09/2017 on an FiO2 of 32% showed a pH of 7.515, PCO2 25.9, PO2 79.3 , bicarb 23.9, and oxygen saturation 95.4%. Exam (Progress Note) - Constitutional Vitals: Period Temp Pulse Resp BP Sys/Chen Pulse Ox Last 24 Hr 96.8 F-98.9 F 59-84 18-28 96-139/55-71 93-99 Exam: Chest is fairly clear Heart no gallop Abdomen is nontender and nondistended; bowel sounds are positive 4 Extremities with nothing to suggest acute deep venous femoral phlebitis Psychiatric oriented 3 Neurologic long-term motor function is intact Plan: We will plan for fiberoptic bronchoscopy in the morning. Preop orders have been placed in the EMR. Consult ENT for left ear pain and decreased hearing. See orders. Results - Labs CBC & BMP: 06/12/17 08:00 06/12/17 08:00
[2017-06-12] MEDS: AZITHROMYCIN INJ 500 MG in SODIUM CHLORIDE 0.9% 250 ML IV SCH (22:11)
[2017-06-13 05:46] LABS: Basophils % 0.2 % (0.0-0.8); Hematocrit 35.7 VOL% (42.0-52.0); Hemoglobin 11.4 GM/DL (14.0-18.0); Immature Granulocytes % 0.8 %; Lymphocytes # 1.4 10*3/uL (1.4-4.0); Lymphocytes % 11.3 % (21.2-54.2); Mean Corpuscular HGB Conc 31.9 GM/DL (32-36); Mean Corpuscular Hemoglobin 30 PG (27-34); Mean Corpuscular Volume 94.7 FL (87-102); Mean Platelet Volume 9.3 FL (9.6-12.0); Monocytes # 0.6 10*3/uL (0.11-0.8); Monocytes % 4.5 % (1.7-12.7); Neutrophils # 10.7 10*3/uL (1.4-7.4); Neutrophils % 83.2 % (38.7-73.9); Platelet Count 211 T/CUMM (130-400); Red Blood Count 3.77 MC/CUMM (3.8-5.5); Red Cell Distribution Width 19.7 % (9.3-17.3); White Blood Count 12.8 T/CUMM (4-12)
[2017-06-13 05:56] LABS: Partial Thromboplastin Time 31.5 SECS (0-40)
[2017-06-13 06:19] LABS: Calcium 8.7 MG/DL (8.5-10.1); Osmolality,Calculated 287.8 MOS/KG (273-304); Potassium 5.1 MMOL/L (3.5-5.1)
[2017-06-13] MEDS ORDERED: MAGNESIUM HYDROXIDE SUSP 30 ML UDCUP PO ONE (07:39)
[2017-06-13] MEDS ORDERED: MEPERIDINE 50 MG/1 ML VIAL IM ONE (08:00)
[2017-06-13] MEDS ORDERED: BENZONATATE 100 MG CAPSULE PO ONE (08:00)
[2017-06-13] MEDS ORDERED: diphenhydrAMINE 50 MG/1 ML VIAL IM ONE (08:00)
--- NOTE | 2017-06-13 08:07 | Family Practice Progress Note ---
Family Practice - PN: Subj Interval history: Patient rested well feels much better overall. He sat up and ambulated yesterday. Still has some slight hemoptysis but apparently this is improved. Denies any significant dyspnea or other complaints. Lung hatch are clear to auscultation this a.m. He scheduled for bronchoscopy this a.m. by Dr. Pierce. Reviewed a.m. lab studies. We will continue present treatment plan await results of bronchoscopy. Exam (Progress Note) - Constitutional Vitals: Period Temp Pulse Resp BP Sys/Chen Pulse Ox Last 24 Hr 96.6 F-97.5 F 53-82 18-20 104-142/57-84 95-100 Results - Labs CBC & BMP: 06/13/17 05:30 06/13/17 05:30 Quality Measures - Stroke Symptom Onset Unknown: No
[2017-06-13] MEDS ORDERED: LIDOCAINE 2% VISCOUS 100 ML BOTTLE SWISH/SPIT ONE (08:30)
[2017-06-13] MEDS ORDERED: LIDOCAINE 1% 20 ML VIAL MISC INJ ONE (08:30)
[2017-06-13] MEDS ORDERED: LIDOCAINE 2% 20 ML VIAL RESP TX ONE (08:30)
--- NOTE | 2017-06-13 10:13 | Event Note ---
In hospital diagnostic fiberoptic bronchoscopy. Bronchoalveolar lavage specimens sent for cytology, Gram stain, bacterial cultures, AFB stains and culture, fungal stains and cultures. This is a 82-year-old black male with underlying COPD and a very strong past history of smoking. He presented with a faint left lower lung infiltrate and a several week history of hemoptysis of bright red blood. There was no pain involved. For these reasons he was evaluated with fiberoptic bronchoscopy. The vocal cords were normal. There was blood in the trachea. Trachea was otherwise normal. The lissette was sharp The right mainstem bronchus, the right upper lung, the right middle lung and right lower lung contain no sites of bleeding and there were no endobronchial lesions. There was mild to moderate collapsibility of the large and small airways compatible with underlying COPD. There was blood in the left mainstem bronchus and in the left upper lung. The blood did not originate from these areas. The blood originated from posterior basal segment of the left lower lung. See photographs. This area was evaluated with bronchoalveolar lavage. There were no endobronchial lesions. Patient did have collapsibility of large and small airways compatible with underlying COPD. The patient tolerated procedure well. There were no complications. I called and talked to the patient's daughter. I told her that I saw no evidence of cancer. That it will be 2-3 days before the final cytologies are out. Impression. 1. Tobacco abuse 2. COPD 3. Acute left lower lung pneumonia 4. Acute hemoptysis originating from friable bronchitis and posterior basilar subsegment of the left lower lung. See photograph. . Plan. 1. Follow-up chest x-ray in the morning. 2. Check bronchoscopy spell
--- NOTE | 2017-06-13 10:14 | Pulmonology Progress Note ---
Pulmonary - PN: Subj Interval history: This 82-year-old black male was seen in pulmonary consultation by Dr. Mylene Glass. Patient had an early left lower lung infiltrate. He had a several week history of hemoptysis. He had been admitted and was being treated with antibiotics but he continued to have hemoptysis. He denied any associated pain CT of the chest showed 1. End-stage lung disease with progressive bullous emphysema and honeycombing developing in lower lungs 2. Interstitial prominence of the left lower lung compared to the right. Suspect underlying interstitial pneumonia. No cavitating masses were seen 3. Calcified atheromatous disease. Microbiology. Blood cultures were negative. Cultures from the nares were negative. Urine has grown Citrobacter Lab. Creatinine is 0.8. BUN is 18. Electrolytes are normal. Admit white count was 18,000 has dropped to 12,800 with 83% segs. H&H 11.4/35.7 and platelets are 211,000. INR is 1.0. I saw the patient on 06/12/2017. I recommended fiberoptic evaluation of hemoptysis in the face of a long history of smoking and abnormal chest x-ray. I explained the procedure to him. Patient was agreeable. On the morning of 06/13/2017 the patient had a fiberoptic bronchoscopy. See report. There were no endobronchial lesions except erosive friable bronchitis and this is probably the source of his bleeding. See photographs under reports. Specimens were sent for cytology, bacterial, AFB and fungal studies. These are pending. Findings have been discussed with the patient's daughter. Physical exam. Vital signs. See below. Afebrile General. No apparent distress. Psychiatric. Oriented 3 Neurologic. Cranial nerves are intact. Long track motor functions intact Face. No swelling of the lips or tongue Neck. Symmetrical. No meningismus Lymphatics. No submandibular cervical supraclavicular or epitrochlear adenopathy Chest. Hyperinflated with prolonged incomplete expiration. No wheeze no stridor Heart. No gallop Abdomen nondistended nontender. Positive bowel sounds Extremities. No clubbing. No edema. The remainder of the physical exam is noncontributory. Plan. 1. Continue antibiotics 2. Follow-up chest x-ray tomorrow 3. Check bronchoscopy Exam (Progress Note) - Constitutional Vitals: Period Temp Pulse Resp BP Sys/Chen Pulse Ox Last 24 Hr 96.6 F-97.5 F 53-105 12-20 104-160/57-105 92-100 Results - Labs CBC & BMP: 06/13/17 05:30 06/13/17 05:30
--- NOTE | 2017-06-13 10:33 | XRay Report ---
2 view chest. Indication: Respiratory preoperative, for bronchoscopy. Comparison: June 12, 2017. The heart is normal in size. There is uncoiling of the thoracic aorta which often indicates chronic hypertension. The lung hatch are hyperexpanded and bullous disease is noted. There is more focal interstitial abnormality at the left lung base with blunting of the left costophrenic angle. This shows continued improvement compared to the previous study. Stable osseous structures. Impression: Severe COPD. Interval improvement at the left base. PROCEDURE INTERPRETED AT [facility] DEPARTMENT OF RADIOLOGY Final Report Signed by: Dr. Adele Christiansen
[2017-06-13] MEDS: NABUMETONE 500 MG TABLET PO SCH (11:53)
[2017-06-13] MEDS: cefTRIAXone 1,000 MG in SODIUM CHLORIDE 0.9% 100 ML IV SCH (11:53)
[2017-06-13] MEDS: predniSONE 10 MG TABLET PO SCH ×3 (11:53→21:29)
[2017-06-13] MEDS: PANTOPRAZOLE 40 MG TABLET PO SCH (11:53)
--- NOTE | 2017-06-13 11:58 | Consultation ---
Assessment and Plan - Time spent with patient Time spent with patient: Less than 30 minutes (1) Patulous eustachian tube of left ear Status: Acute Assessment and plan: I recommended the use of nasal saline spray to help keep his nose moist as his symptoms could be exacerbated with dry oxygen per nasal cannula. Additionally I discussed with him that this is usually a self resolving situation that we will continue to watch for 1-3 months before we offer injection tuboplasty or other possible treatments. He was okay with the above. He can follow-up with me in my office in 1-3 months if there is no improvement or sooner if needed. Thank you very much for this consult I will sign off on this case by remain available if there are any additional questions or concerns Current Visit: Yes (2) Otalgia of left ear Status: Acute Current Visit: Yes (3) Hearing disorder of left ear Status: Acute Current Visit: Yes History of Present Illness - Data of Consult Patient: new to practice Consult date: 06/12/17 Requesting Physician: Adam Castaneda - Consult Narrative Reason for consult: Left otalgia History of present illness: Mr. Green is a 82 year old male with a new onset over the last 2 days of left- sided otalgia and disturbance in hearing that is described as talking and a barrel. This is been frustrating to the patient has tried decongestants with no improvement it has continued to increase in severity and frequency it will occasionally fix itself but come right back and this is becoming less frequent and it is more consistent that he has this sensation. ENT is consulted for evaluation and treatment CC: Adam Castaneda, DO - Home Medications and Allergies Home Medications: Home Medications Medication Instructions Recorded Confirmed Type Nabumetone 750 mg PO DAILY 04/26/17 04/26/17 History Acetaminophen Tab [Tylenol Tab] 650 mg PO Q6H PRN tablet 04/30/17 Rx Pantoprazole Tab [Protonix Tab] 40 mg PO DAILY #30 tablet 04/30/17 Rx traMADol TAB [Ultram] 50 mg PO Q6H PRN #30 tablet 04/30/17 06/10/17 Rx Folic Acid Tab 1 mg PO DAILY 06/09/17 06/09/17 History Methotrexate Tab 10 mg PO Q7DAY 06/09/17 06/09/17 History Multivit-Min/FA/Lycopen/Lutein 1 each PO DAILY 06/09/17 06/09/17 History [Centrum Silver Men Tablet] Vit B Comp/C/FA/Iron/Vit E 1,000 each PO DAILY 06/09/17 06/09/17 History [Vitamin B Complex Tablet] predniSONE TAB [PredniSONE] 15 mg PO DAILY 06/09/17 06/09/17 History Guaifenesin/Phenylephrine HCl 1 each PO QID PRN 06/10/17 06/10/17 History [Deconex IR 380/10] Allergies/Adverse Reactions: Allergies Allergy/AdvReac Type Severity Reaction Status Date / Time No Known Allergies Allergy Unverified 07/25/16 21:03 12 point system: reviewed and no additional remarkable complaints except as stated Medical,Surgical,& Family Hx - Medical History Cardio: History of: Hypertension No history of: Aneurysm, Cardiac Dysrhythmia, Cerebrovascular Disease, Congenital Heart Disease, CHF, CAD, [place], Pacemaker, PVD, Valvular Heart Disease, Cardiovascular Problems Psychological: No history of: Anxiety Disorders, ADHD, Behavior Problems, Bipolar Disorder, Depression, Previous Suicide Attempt, Psychiatric/Substance Abuse Tx, Schizophrenia, Psychiatric Problems Neurology: No history of: Brain Aneurysm, Cerebral Hemorrhage, Cerebrovascular Accident , Cerebral Palsy, Dementia, Migraine, Multiple Sclerosis, Parkinson's Disease, Peripheral Neuropathy, Seizures, TIA, Vertigo, Neurologocal Cancer HEENT: History of: Ear Problem, Eye Problem, Glaucoma (3 YEARS AGO) Endocrine: History of: Dyslipidemia No history of: Adrenal Disease, Diabetes Mellitus (IDDM), Diabetes Mellitus ( NIDDM), Thyroid Disorder, Endocrine Cancer, Endocrine Problems Rheumatology: History of;: Rheumatoid Arthritis No history of;: Psoriasis Respiratory: History of: Pneumonia (3 years ago) No history of: Asthma, Bronchitis, Obstructive Sleep Apnea, Pulmonary Embolism, Pulmonary Hypertension, Respiratory Problems Renal: No history of: Renal (Kidney) Cancer Genitourinary: History of: Bladder Problem, Prostate Problems (History of prostate carcinoma), Genitourinary Cancer (History of urinary bladder cancer presently has a cystostomy bag) No history of: Kidney Stones Gastrointestinal: History of: GI Problems (History of carcinoma of the bladder) Musculoskeletal: History of: Musculoskeletal Problems No history of: Amputation Hematology: No history of: Anemia, Blood Transfusion Reaction, Bleeding Problems, Sickle Cell Disease, Hematologic Cancer, Blood Disorders Other: History of: Cancer (BLADDER CA) No history of: Anesthesia Reactions, Anaphylaxis, Eczema, HIV, MRSA - Surgical History Cardiac Surgeries: Patient Denies: Femoral-Popliteal Bypass Graft, Cardiac Catheterization, Cardiac Surgery, Carotid Endarterectomy, Internal Defibrillator, Vascular Access Devices Thoracic Surgeries: Patient denies;: Organ Transplant, Lobectomy Neurologic Surgeries: Patient denies: Brain Aneurysm, Cerebral Hemorrhage, Neurologic Surgery HEENT Surgeries: Patient denies: Carotid Endarterectomy, Thyroid Surgery Abdominal Surgeries: Surgical HX of: Hernia Repair Patient denies: Abdominal Surgery, Appendectomy, Cholecystectomy, Colonoscopy , Gastric Bypass Surgery, EGD, Splenectomy Reproductive Surgeries: Surgical HX of;: Genitourinary Surgery (bladder removal , urostomy), Prostate Surgery (TURP) - Family History Family History: Reports;: Family Cancer (MOTHER, FATHER, BROTHER,), Family Stroke (GRANDMOTHER) Denies;: Family Anesthesia Reaction, Family Diabetes, Family Heart Disease, Family Hematology, Family Hypertension, Family Psychiatric Problems, Additional Family History - Social History Smoking Status: Never smoker Frequency of Alcohol Use: None Type of Drug Use: None Exam - Constitutional Vitals: Period Temp Pulse Resp BP Sys/Chen Pulse Ox Last 24 Hr 96.6 F-97.5 F 53-105 12-20 104-160/57-105 92-100 General appearance: normal weight, no acute distress - Head Head exam: Present: normal inspection, normocephalic - Eye Eye exam: Present: EOMI Pupils: Present: DRU - ENT ENT exam: Present: normal exam, normal external ear exam, normal oropharynx - Expanded ENT Exam Ear exam: Present: TM's normal bilaterally (His exam and complaint is consistent with a left-sided patulous eustachian tube which is consistent with his history subjectively as well as objectively especially with the worsening with nasal oxygen.) Mouth exam: Present: normal external inspection Teeth exam: Present: other (Upper and lower dentures) Throat exam: Present: normal inspection - Neck Neck exam: Present: normal inspection - Respiratory Respiratory exam: Present: other (No shortness of breath or difficulty breathing ) - GI/Abdominal GI/Abdominal exam: Present: soft - Extremities Exam Extremities exam: Present: normal inspection, normal capillary refill - Neurological Exam Neurological exam: Present: alert, oriented X3, CN II-XII intact - Psychiatric Psychiatric exam: Present: normal affect, normal mood - Skin Skin exam: Present: normal color, warm Results - Labs CBC & BMP: 06/13/17 05:30 06/13/17 05:30 Lab Results: I have reviewed the past 24 hour labs Quality Measures - Stroke Symptom Onset Unknown: No
[2017-06-13] MEDS: AZITHROMYCIN INJ 500 MG in SODIUM CHLORIDE 0.9% 250 ML IV SCH (21:29)
[2017-06-13] MEDS: DEXTROSE 5% NACL 0.45% 1,000 ML IV SCH (21:34)
[2017-06-14 07:22] LABS: Basophils % 0.1 % (0.0-0.8); Hematocrit 38.4 VOL% (42.0-52.0); Hemoglobin 12.1 GM/DL (14.0-18.0); Immature Granulocytes % 1.2 %; Immature Granulocytes Absolute 0.15 #; Lymphocytes # 2.2 10*3/uL (1.4-4.0); Mean Corpuscular HGB Conc 31.5 GM/DL (32-36); Mean Corpuscular Hemoglobin 30 PG (27-34); Mean Corpuscular Volume 95.3 FL (87-102); Mean Platelet Volume 9.6 FL (9.6-12.0); Monocytes # 0.5 10*3/uL (0.11-0.8); Monocytes % 3.8 % (1.7-12.7); Neutrophils # 10.2 10*3/uL (1.4-7.4); Neutrophils % 77.9 % (38.7-73.9); Platelet Count 257 T/CUMM (130-400); Red Blood Count 4.03 MC/CUMM (3.8-5.5); Red Cell Distribution Width 19.7 % (9.3-17.3)
[2017-06-14 07:43] LABS: Calcium 8.8 MG/DL (8.5-10.1); Potassium 5.1 MMOL/L (3.5-5.1)
--- NOTE | 2017-06-14 08:02 | Family Practice Progress Note ---
Family Practice - PN: Subj Interval history: Patient rested well feels much better overall. He sat up and ambulated yesterday. Still has some slight hemoptysis but apparently this is improved. Denies any significant dyspnea or other complaints. Lung hatch are clear to auscultation this a.m. He scheduled for bronchoscopy this a.m. by Dr. Pierce. Reviewed a.m. lab studies. We will continue present treatment plan await results of bronchoscopy. 06/14/17 -patient continues to improve. Minimal cough this a.m. has slight blood tinged sputum. He did not ambulate yesterday due to the sedative effects from scope. Cultures negative except for urine culture which is positive for Citrobacter. Lung hatch are clear to auscultation this a.m. No new problems identified. Will have patient increase activity today up in chair as much as possible will begin discharge planning. Chest x-ray scheduled for this a.m. Exam (Progress Note) - Constitutional Vitals: Period Temp Pulse Resp BP Sys/Chen Pulse Ox Last 24 Hr 96.4 F-97.7 F 58-105 12-20 114-160/63-105 92-97 Results - Labs CBC & BMP: 06/14/17 06:36 06/14/17 06:36 Quality Measures - Stroke Symptom Onset Unknown: No
[2017-06-14] MEDS: cefTRIAXone 1,000 MG in SODIUM CHLORIDE 0.9% 100 ML IV SCH (09:11)
[2017-06-14] MEDS: NABUMETONE 500 MG TABLET PO SCH (09:12)
[2017-06-14] MEDS: PANTOPRAZOLE 40 MG TABLET PO SCH (09:12)
[2017-06-14] MEDS: predniSONE 10 MG TABLET PO SCH ×3 (09:13→22:26)
--- NOTE | 2017-06-14 13:01 | XRay Report ---
XR chest 2V Indication: Hemoptysis. Left lower lobe infiltrate. Chest 2 views: Comparison yesterday. Heart size remains normal with continued thoracic aortic tortuosity. Pulmonary hyperinflation, bullous emphysematous changes and interstitial scarring the lungs appear stable as well. Continued infiltrate left lung base noted. Impression: No change. PROCEDURE INTERPRETED AT [facility] DEPARTMENT OF RADIOLOGY Final Report Signed by: Andrez Heaton M.D.
--- NOTE | 2017-06-14 18:16 | Pathology Report from [facility] ---
[facility] ACCESSION # : [id number] PATIENT NAME : Amy Green ORDERING DR : KARISHMA MIRANDA MD CLINICAL HX: Pneumonia, hemoptysis, smoker with hx bladder ca POST-OP DX: Same SPECIMEN INFO: Washing- Bronchial, LLL - 20 mls cloudy light red CLASS: I CLASS COMMENTS: Benign respiratory cells with much acute and chronic inflammationCELL BLOCK: Same CLASS LEGEND: CLASS 0 Material inadequate for diagnosis because of (see comment) CLASS I Absence of atypical or abnormal cells CLASS II Atypical Cytology but no evidence of malignancy CLASS III Cytology suggestive of but not conclusive for malignancy CLASS IV Cytology strongly suggestive of malignancy CLASS V Cytology conclusive for malignancy COLLECTED DATE: 06/13/2017 [facility] REPORT DATE: 06/14/2017 ELECTRONICALLY SIGNED BY: Francisco Blanton M.D. 06/14/2017 - 9:29:42 [facility]
[2017-06-14] MEDS: AZITHROMYCIN INJ 500 MG in SODIUM CHLORIDE 0.9% 250 ML IV SCH (22:26)
[2017-06-14] MEDS: DEXTROSE 5% NACL 0.45% 1,000 ML IV SCH (22:30)
[2017-06-15 05:31] LABS: Basophils % 0.2 % (0.0-0.8); Eosinophils # 0.1 10*3/uL (0.0-0.87); Eosinophils % 0.5 % (0.00-10.9); Hemoglobin 11.6 GM/DL (14.0-18.0); Immature Granulocytes % 1.9 %; Immature Granulocytes Absolute 0.24 #; Lymphocytes # 2.8 10*3/uL (1.4-4.0); Lymphocytes % 21.9 % (21.2-54.2); Mean Corpuscular HGB Conc 32.2 GM/DL (32-36); Mean Corpuscular Hemoglobin 30 PG (27-34); Mean Corpuscular Volume 93.8 FL (87-102); Mean Platelet Volume 9.6 FL (9.6-12.0); Monocytes # 0.6 10*3/uL (0.11-0.8); Monocytes % 4.8 % (1.7-12.7); Neutrophils # 8.9 10*3/uL (1.4-7.4); Neutrophils % 70.7 % (38.7-73.9); Platelet Count 281 T/CUMM (130-400); Red Blood Count 3.84 MC/CUMM (3.8-5.5); Red Cell Distribution Width 19.6 % (9.3-17.3); White Blood Count 12.6 T/CUMM (4-12)
[2017-06-15 06:03] LABS: Calcium 8.7 MG/DL (8.5-10.1); Potassium 4.3 MMOL/L (3.5-5.1)
[2017-06-15 08:06] VITALS: BP 138/77
--- NOTE | 2017-06-15 08:18 | Discharge Summary ---
Discharge Plan - Discharge Data Disposition: Disch To Home/Self Care Condition at Discharge: Stable Discharge Diet: advance to your usual diet Activity: resume usual activities as tolerated Weight Bearing at Discharge: weight bear as tolerated Contact your physician if you experience:: fever over 101, Shortness of breath - Discharge Medications New Benzonatate [Tessalon] 200 mg PO TID PRN #30 capsule PRN Reason: Cough Levofloxacin Tab [Levaquin Tab] 500 mg PO DAILY #10 tablet Continue Acetaminophen Tab [Tylenol Tab] 650 mg PO Q6H PRN tablet PRN Reason: Fever, Headache, Mild Pain traMADol TAB [Ultram] 50 mg PO Q6H PRN #30 tablet PRN Reason: Pain predniSONE TAB [PredniSONE] 15 mg PO DAILY Folic Acid Tab 1 mg PO DAILY Multivit-Min/FA/Lycopen/Lutein [Centrum Silver Men Tablet] 1 each PO DAILY Vit B Comp/C/FA/Iron/Vit E [Vitamin B Complex Tablet] 1,000 each PO DAILY Methotrexate Tab 10 mg PO Q7DAY Guaifenesin/Phenylephrine HCl [Deconex IR 380/10] 1 each PO QID PRN PRN Reason: Cough - Follow Up or Referral Follow Up: Monica Castaneda DO [Primary Care Provider] - 2 Weeks - Forms/Instructions Exam - Constitutional Vitals: Period Temp Pulse Resp BP Sys/Chen Pulse Ox Last 24 Hr 97.0 F-97.6 F 58-85 12-20 120-140/62-94 93-98 Discharge Results Procedures and tests throughout hospitalization: Pending Orders 06/13/17 AFB Culture/Smears Stat Bronchoalveolar Lavage C & GS Stat Fungal Culture w/ Prep Stat Labs on day of discharge: Labs from last 24 hours 06/15/17 06/15/17 05:05 05:05 WBC 12.6 H RBC 3.84 Hgb 11.6 L Hct 36.0 L MCV 93.8 MCH 30 MCHC 32.2 RDW 19.6 H Plt Count 281 MPV 9.6 Neut % (Auto) 70.7 Lymph % (Auto) 21.9 [place] % (Auto) 4.8 Eos % (Auto) 0.5 Baso % (Auto) 0.2 Neut # (Auto) 8.9 H Lymph # (Auto) 2.8 [place] # (Auto) 0.6 Eos # (Auto) 0.1 Baso # (Auto) 0.0 Immature Gran % 1.9 Nucleated RBC % 0.0 Immature Gran # 0.24 Nucleated RBCs # 0.00 Immature Plt Fraction 0.0 Sodium 143 Potassium 4.3 Chloride 109 H Carbon Dioxide 27 Anion Gap 11.3 BUN 17 Creatinine 0.80 GFR Calculation 106 BUN/Creatinine Ratio 21.00 H Glucose 80 Calculated Osmolality 285.0 Calcium 8.7 Preliminary micro results at discharge 06/13/17 Unknown Bronchoalveolar Lavage Culture - Preliminary Bronchial Kalpesh Lavage Normal Cielo at 24 hours DS: Provider Date of admission: 06/09/17 12:44 Primary care physician: Monica Castaneda DO Attending physician on admission: Monica Castaneda DO Consults: 06/09/17 14:20 Consult to Case Mgmt/Social Srvs [CONS] Routine Reason for Case Mgmt/Social Srvs: Discharge Planning 06/10/17 07:00 Consult to Physician [CONS] Routine Comment: Consulting Provider: Scottie Evans Person Notified: notified on rounds 06/12/17 08:09 Consult to Physical Therapy [CONS] Routine Reason for Physical Therapy: Weakness Start Therapy: Today 06/12/17 10:54 Consult to Physician [CONS] Routine Comment: left ear pain, decreased hearing Consulting Provider: Milad Ku Person Notified: monica Date Notified: 06/12/17 Time Notified: 13:42 Discharging clinician: Monica Castaneda DO
[2017-06-15] MEDS ORDERED: BENZONATATE 100 MG CAPSULE PO PRN (08:20)
[2017-06-15] MEDS: cefTRIAXone 1,000 MG in SODIUM CHLORIDE 0.9% 100 ML IV SCH (08:51)
[2017-06-15] MEDS: NABUMETONE 500 MG TABLET PO SCH (08:53)
[2017-06-15] MEDS: predniSONE 10 MG TABLET PO SCH (08:54)
[2017-06-15] MEDS: PANTOPRAZOLE 40 MG TABLET PO SCH (08:54)
[2017-06-15] MEDS ORDERED: LEVOFLOXACIN 500 MG TABLET PO SCH (09:00)
--- NOTE | 2017-06-15 12:08 | Pulmonology Progress Note ---
Pulmonary - PN: Subj Interval history: Erik Mendes, [facility], acting as scribe for Dr. Marcelino Giang Mr. Green is an 82-year-old -[place] male who was seen in initial pulmonary consultation on 06/11/[address] Reyes. This patient was admitted for pneumonia on 06/09/2017. His other pertinent past history includes hypertension , glaucoma, dyslipidemia, rheumatoid arthritis, pneumonia, history of carcinoma of the bladder, history of diverticulosis coli, history of right inguinal hernia , history of left inguinal hernia, and BPH. 06/12/2017. He was seen today along with who we presume is his grandson. In speaking with the patient today, he has had off-and-on hemoptysis over the past several months. He states that often times the blood is "mixed" bright and dark red. With his more recent hemoptysis, it has been more bright red. He was previously a smoker but states he quit smoking in 2000. At the time he quit , he was smoking approximately 1-1/2 packs per day. At the time of admission, he states that he has had mixed hemoptysis for approximately 1-1/2 weeks. Chest x-ray was reviewed and shows a left lower lung pneumonia as well as extensive emphysema. We discussed all these findings with Mr. Green and his male family member who is present. We have explained to him that in no setting his hemoptysis and normal finding. We would like to proceed with fiberoptic bronchoscopy in the morning and he is agreeable. This is been set up for approximately 9:30 AM. He also complains of left ear pain and decreased hearing. We have consulted ENT for evaluation/treatment of this. Medications have been reviewed. We made no changes today. Labs been reviewed. White count is 14,100 with 86.2% segs; H&H 11.9/36.9; platelet count 207,000; creatinine 0.0, BUN 15, electrolytes are normal Microbiology has been reviewed. Urine culture has grown Citrobacter farmeri. Blood cultures are negative thus far. MRSA screen of the nares is negative. ABGs done 06/09/2017 on an FiO2 of 32% showed a pH of 7.515, PCO2 25.9, PO2 79.3 , bicarb 23.9, and oxygen saturation 95.4%. The patient's note from 06/14/2017 cannot be located in the EMR. He was seen along with a female family member as well as 2 male family members. We discussed the results of his fiberoptic bronchoscopy at that time. We are waiting for the final cytology. We explained to the patient and his family that there were no endobronchial lesions seen and we suspected that his hemoptysis secondary to his infection. All their questions were answered to their understanding. 06/15/2017. The patient is planned for discharge today. Cytology from fiberoptic bronchoscopy has been reported as class I. Again, his hemoptysis is secondary to his infection should clear over time. Medications have been reviewed. We made no changes. Labs been reviewed. Exam (Progress Note) - Constitutional Vitals: Period Temp Pulse Resp BP Sys/Chen Pulse Ox Last 24 Hr 97.0 F-97.6 F 58-85 14-20 120-140/62-94 93-98 Exam: Chest is fairly clear Heart no gallop Abdomen is nontender and nondistended; bowel sounds are positive 4 Extremities with nothing to suggest acute deep venous thrombophlebitis Psychiatric oriented 3 Neurologic long-term motor function is intact Plan: Your plans for discharge are noted. We will sign off. Please reconsult as needed. Results - Labs CBC & BMP: 06/15/17 05:05 06/15/17 05:05 Specialty Discharge - Follow Up or Referrals Follow up with: Adam Castaneda DO [Primary Care Provider] - 06/29/17 10:45 am
[2017-06-17] MEDS ORDERED: predniSONE 10 MG TABLET PO SCH (09:00)
--- NOTE | 2017-06-20 08:42 | Physician Query Form ---
CLICK EDIT DOCUMENT TO SELECT QUERY ANSWER --> OK --> SIGN Cora Vines RN Clinical Electronic Development Technician W) [phone] (f) [phone] [email or web address]: Make your selection(s) from the choices in EACH section by typing an "x" and enter comments in the comment section. Please use your independent medical judgment in providing your response. This request does not imply that any particular answer is desired or expected. CLINICAL INDICATORS: (Providers should not edit this section) The below diagnosis was documented in the record, but is not consistently noted in subsequent documentation. Based on documentation of "Sepsis" "Acute Left lower lobe Pneumonia" "Acute UTI " Temp of 99.9 up to 101.4, Heart Rate of 120, and BP of 88/57. Treated with IV Rocephin, NS Bolus, D5 1/2 NS infusion, and IV Zithromax. Diagnosis:Sepsis Please clarify the following: ( ) The above diagnosis was monitored, evaluated, and/or treated and is a confirmed diagnosis ( ) The above diagnosis was ruled out ( ) The above diagnosis is still a likely, suspected, probable diagnosis ( ) Other, please specify: ( ) Clinically unable to determine COMMENTS: PLEASE ALSO DOCUMENT RESPONSE IN PROGRESS NOTES AND/OR DISCHARGE SUMMARY Use of terms such as suspected, likely, or probable (associated with a specific diagnosis that is being evaluated, monitored, or treated as if it exists) are acceptable and can be restated in the discharge summary if not ruled out. MTDD
[2017-06-24] MEDS ORDERED: predniSONE 10 MG TABLET PO SCH (09:00)
== END 2017-06-15 09:45 | disposition home or self-care (01) | DRG 853 ==
LOC: N.ED 09:03 → N.EDINP 12:44 → N.CC 14:15 → N.2E 06-10 17:13
PROVIDERS: ADMIT Family Medicine; ATTEND Family Medicine

== ENCOUNTER 2017-10-01 09:43 | Inpatient (IN) ==
[2017-10-01 11:17] LABS: Basophils % 0.2 % (0.0-0.8); Eosinophils % 0.2 % (0.00-10.9); Hematocrit 35.7 VOL% (42.0-52.0); Hemoglobin 11.7 GM/DL (14.0-18.0); Immature Granulocytes Absolute 0.08 #; Lymphocytes # 1.3 10*3/uL (1.4-4.0); Lymphocytes % 15.4 % (21.2-54.2); Mean Corpuscular HGB Conc 32.8 GM/DL (32-36); Mean Corpuscular Hemoglobin 31 PG (27-34); Mean Corpuscular Volume 94.4 FL (87-102); Monocytes # 0.6 10*3/uL (0.11-0.8); Monocytes % 7.4 % (1.7-12.7); Neutrophils # 6.2 10*3/uL (1.4-7.4); Neutrophils % 75.8 % (38.7-73.9); Platelet Count 302 T/CUMM (130-400); Red Blood Count 3.78 MC/CUMM (3.8-5.5); Red Cell Distribution Width 16.8 % (9.3-17.3); White Blood Count 8.2 T/CUMM (4-12)
[2017-10-01 11:49] LABS: Alanine Aminotransferase 9 U/L (16-61); Albumin 2.6 G/DL (3.4-5.0); Alkaline Phosphatase 50 U/L (45-117); Aspartate Amino Transferase 11 U/L (0-37); Blood Urea Nitrogen 12 MG/DL (7-18); Calcium 8.7 MG/DL (8.5-10.1); Glucose 96 MG/DL (74-106); Osmolality,Calculated 274.7 MOS/KG (273-304); Potassium 3.6 MMOL/L (3.5-5.1); Sodium 138 MMOL/L (136-145); Total Protein 6.6 G/DL (6.4-8.3); Troponin I Only < 0.015 NG/ML (0.00-0.045)
[2017-10-01 12:35] LABS: Apearance,Urine CLOUDY (Clear); Bacteria,Urine Many /HPF (Few); Bilirubin,Urine Negative (Negative); Blood, Urine Moderate mg/dL (Negative); Glucose,Urine (UA) Negative (Negative); Ketones,Urine Negative (Negative); Mucus,Urine Many /LPF (Occasional); Nitrite,Urine Negative (Negative); Protein,Urine 100 MG/DL; RBC,Urine 56 /HPF (0-4); Squamous Epithelial Cell,Urine Occasional /HPF (0-10); Urine Color Amber (Yellow); Urine Specific Gravity 1.016 (1.001-1.035); WBC,Urine 775 /HPF (0-6)
[2017-10-01] MEDS ORDERED: PIPERACILLIN/TAZOBACTAM 3,375 MG in SODIUM CHLORIDE 0.9% 100 ML IV STA (13:32)
[2017-10-01] MEDS ORDERED: ACETAMINOPHEN 325 MG TABLET PO PRN (13:33)
[2017-10-01] MEDS ORDERED: ONDANSETRON 4 MG/2 ML VIAL IV PRN (13:33)
[2017-10-01] MEDS ORDERED: NITROGLYCERIN SL 0.4 MG TABLET SL PRN (13:37)
[2017-10-01] MEDS ORDERED: PIPERACILLIN/TAZOBACTAM 3,375 MG VIAL IV ONE (13:55)
[2017-10-01] MEDS ORDERED: ENOXAPARIN 40 MG/0.4 ML SYRINGE ONE (14:36)
[2017-10-01] MEDS: SODIUM CHLORIDE 0.45% 1,000 ML IV SCH (14:40)
[2017-10-01] MEDS: ENOXAPARIN 40 MG/0.4 ML SYRINGE SUBCUT SCH (14:40)
[2017-10-01] MEDS ORDERED: traMADol 50 MG TABLET PO PRN (19:02)
[2017-10-01] MEDS ORDERED: BENZONATATE 100 MG CAPSULE PO PRN (19:02)
[2017-10-01] MEDS: methylPREDNISolone SOD SUC 40 MG/1 ML VIAL IV SCH (22:14)
[2017-10-01] MEDS: DOCUSATE SODIUM 100 MG CAPSULE PO SCH (22:15)
[2017-10-02] MEDS: PIPERACILLIN/TAZOBACTAM 3,375 MG in SODIUM CHLORIDE 0.9% 100 ML IV SCH ×4 (00:09→22:31)
[2017-10-02] MEDS: methylPREDNISolone SOD SUC 40 MG/1 ML VIAL IV SCH ×3 (04:07→20:15)
[2017-10-02 05:45] LABS: Hematocrit 31.2 VOL% (42.0-52.0); Hemoglobin 10.2 GM/DL (14.0-18.0); Immature Granulocytes % 1.1 %; Immature Granulocytes Absolute 0.08 #; Lymphocytes # 0.7 10*3/uL (1.4-4.0); Mean Corpuscular HGB Conc 32.7 GM/DL (32-36); Mean Corpuscular Hemoglobin 31 PG (27-34); Mean Corpuscular Volume 94.3 FL (87-102); Mean Platelet Volume 9.5 FL (9.6-12.0); Monocytes # 0.3 10*3/uL (0.11-0.8); Neutrophils # 6.2 10*3/uL (1.4-7.4); Neutrophils % 85.9 % (38.7-73.9); Platelet Count 277 T/CUMM (130-400); Red Blood Count 3.31 MC/CUMM (3.8-5.5); Red Cell Distribution Width 16.7 % (9.3-17.3); White Blood Count 7.2 T/CUMM (4-12)
[2017-10-02 07:09] LABS: Free T4 (Free Thyroxine) 1.65 NG/DL (0.76-1.46); Thyroid Stimulating Hormone 0.619 uIU/ml (0.358-3.74)
[2017-10-02] MEDS ORDERED: ASPIRIN 325 MG TABLET PO SCH (09:00)
[2017-10-02 10:51] LABS: Troponin I Only < 0.015 NG/ML (0.00-0.045)
[2017-10-02] MEDS: MULTIVITAMIN (BEROCCA) TABLET PO SCH (14:32)
[2017-10-02] MEDS: ENOXAPARIN 40 MG/0.4 ML SYRINGE SUBCUT SCH (14:32)
[2017-10-02] MEDS: MULTIVITAMIN (CENTRUM) TABLET PO SCH (14:32)
[2017-10-02] MEDS: FOLIC ACID 1 MG TABLET PO SCH (14:32)
[2017-10-02] MEDS: SODIUM CHLORIDE 0.45% 1,000 ML IV SCH (14:32)
[2017-10-02] MEDS: PANTOPRAZOLE 40 MG TABLET PO SCH (14:32)
[2017-10-02] MEDS: DOCUSATE SODIUM 100 MG CAPSULE PO SCH ×2 (14:32→20:16)
[2017-10-02 17:09] LABS: Troponin I Only < 0.015 NG/ML (0.00-0.045)
[2017-10-03] MEDS: methylPREDNISolone SOD SUC 40 MG/1 ML VIAL IV SCH ×3 (03:32→21:14)
[2017-10-03 05:03] LABS: Basophils % 0.1 % (0.0-0.8); Hematocrit 30.2 VOL% (42.0-52.0); Hemoglobin 9.6 GM/DL (14.0-18.0); Immature Granulocytes % 0.8 %; Lymphocytes # 1.1 10*3/uL (1.4-4.0); Lymphocytes % 8.5 % (21.2-54.2); Mean Corpuscular HGB Conc 31.8 GM/DL (32-36); Mean Corpuscular Hemoglobin 30 PG (27-34); Mean Corpuscular Volume 94.1 FL (87-102); Monocytes # 0.6 10*3/uL (0.11-0.8); Monocytes % 4.7 % (1.7-12.7); Neutrophils # 11.2 10*3/uL (1.4-7.4); Neutrophils % 85.9 % (38.7-73.9); Platelet Count 301 T/CUMM (130-400); Red Blood Count 3.21 MC/CUMM (3.8-5.5); Red Cell Distribution Width 16.3 % (9.3-17.3); White Blood Count 13.1 T/CUMM (4-12)
[2017-10-03] MEDS: SODIUM CHLORIDE 0.45% 1,000 ML IV SCH (05:21)
[2017-10-03 05:36] LABS: Calcium 7.8 MG/DL (8.5-10.1); Osmolality,Calculated 288.8 MOS/KG (273-304); Potassium 3.6 MMOL/L (3.5-5.1)
[2017-10-03] MEDS: PIPERACILLIN/TAZOBACTAM 3,375 MG in SODIUM CHLORIDE 0.9% 100 ML IV SCH ×3 (06:58→23:34)
[2017-10-03] MEDS: FOLIC ACID 1 MG TABLET PO SCH (09:04)
[2017-10-03] MEDS: DOCUSATE SODIUM 100 MG CAPSULE PO SCH ×2 (09:04→21:33)
[2017-10-03] MEDS: COLCHICINE 0.6 MG TABLET PO SCH ×2 (09:04→21:33)
[2017-10-03] MEDS: MULTIVITAMIN (BEROCCA) TABLET PO SCH (09:04)
[2017-10-03] MEDS: MULTIVITAMIN (CENTRUM) TABLET PO SCH (09:04)
[2017-10-03] MEDS: PANTOPRAZOLE 40 MG TABLET PO SCH (09:05)
[2017-10-03] MEDS: INDOMETHACIN 25 MG CAPSULE PO SCH ×3 (09:05→21:33)
[2017-10-03] MEDS: ENOXAPARIN 40 MG/0.4 ML SYRINGE SUBCUT SCH (14:21)
[2017-10-04] MEDS: methylPREDNISolone SOD SUC 40 MG/1 ML VIAL IV SCH (04:35)
[2017-10-04 06:14] LABS: Calcium 7.8 MG/DL (8.5-10.1); Osmolality,Calculated 290.1 MOS/KG (273-304); Potassium 3.3 MMOL/L (3.5-5.1)
[2017-10-04] MEDS: PIPERACILLIN/TAZOBACTAM 3,375 MG in SODIUM CHLORIDE 0.9% 100 ML IV SCH (06:15)
[2017-10-04 07:44] VITALS: BP 133/60
[2017-10-04] MEDS: INDOMETHACIN 25 MG CAPSULE PO SCH (08:32)
[2017-10-04] MEDS: MULTIVITAMIN (BEROCCA) TABLET PO SCH (08:32)
[2017-10-04] MEDS: MULTIVITAMIN (CENTRUM) TABLET PO SCH (08:32)
[2017-10-04] MEDS: PANTOPRAZOLE 40 MG TABLET PO SCH (08:32)
[2017-10-04] MEDS: COLCHICINE 0.6 MG TABLET PO SCH (08:32)
[2017-10-04] MEDS: DOCUSATE SODIUM 100 MG CAPSULE PO SCH (08:33)
[2017-10-04] MEDS: FOLIC ACID 1 MG TABLET PO SCH (08:33)
[2017-10-04] MEDS ORDERED: METHOTREXATE 2.5 MG TABLET PO SCH (09:00)
[2017-10-04] MEDS ORDERED: POTASSIUM CHLORIDE 10 MEQ TABLET PO SCH (09:00)
[2017-10-04] MEDS ORDERED: CIPROFLOXACIN 500 MG TABLET PO SCH (09:00)
== END 2017-10-04 10:56 | disposition home or self-care (01) | DRG 545 ==
LOC: N.ED 09:43 → N.EDINP 13:33 → N.TELEN 15:10
PROVIDERS: ADMIT Family Medicine; ATTEND Family Medicine

== ENCOUNTER 2018-06-05 08:39 | Inpatient (IN) ==
[2018-06-05] MEDS ORDERED: LEVOFLOXACIN INJ 500 MG in PREMIX 1 EACH IV STA (08:57)
[2018-06-05 09:23] LABS: Basophils % 0.2 % (0.0-0.8); Eosinophils % 0.3 % (0.00-10.9); Hematocrit 44.2 VOL% (42.0-52.0); Hemoglobin 14.1 GM/DL (14.0-18.0); Immature Granulocytes % 0.8 %; Lymphocytes # 1.1 10*3/uL (1.4-4.0); Lymphocytes % 9.3 % (21.2-54.2); Mean Corpuscular HGB Conc 31.9 GM/DL (32-36); Mean Corpuscular Hemoglobin 32 PG (27-34); Mean Platelet Volume 10.5 FL (9.6-12.0); Monocytes # 0.6 10*3/uL (0.11-0.8); Monocytes % 5.2 % (1.7-12.7); Neutrophils % 84.2 % (38.7-73.9); Platelet Count 174 T/CUMM (130-400); Red Blood Count 4.42 MC/CUMM (3.8-5.5); Red Cell Distribution Width 16.5 % (9.3-17.3); White Blood Count 11.9 T/CUMM (4-12)
[2018-06-05] MEDS: ALBUTEROL 2.5 MG/3 ML NEB RESP TX SCH ×3 (09:30→09:40)
[2018-06-05 09:34] LABS: Apearance,Urine CLOUDY (Clear); Bacteria,Urine Moderate /HPF (Few); Bilirubin,Urine Negative (Negative); Blood, Urine Small mg/dL (Negative); Glucose,Urine (UA) Negative (Negative); Ketones,Urine 5 mg/dL (Negative); Mucus,Urine Many /LPF (Occasional); Nitrite,Urine Positive (Negative); Protein,Urine 100 MG/DL; RBC,Urine 10 /HPF (0-4); Squamous Epithelial Cell,Urine Occasional /HPF (0-10); Triple Phosphate Crystal,Urine Occasional /HPF (Few); Urine Color Yellow (Yellow); Urine Specific Gravity 1.015 (1.001-1.035); WBC,Urine 129 /HPF (0-6)
[2018-06-05 09:35] LABS: INR 1.1; Partial Thromboplastin Time 28.9 SECS (0-40)
[2018-06-05 10:05] LABS: Albumin 2.7 G/DL (3.4-5.0); Bilirubin,Total 1.9 MG/DL (0.2-1.0); Osmolality,Calculated 278.4 MOS/KG (273-304); Potassium 3.7 MMOL/L (3.5-5.1); Total Protein 7.8 G/DL (6.4-8.3)
[2018-06-05] MEDS ORDERED: MAGNESIUM SULF RIDER 2 GM in PREMIX 1 EACH IV PRN (14:02)
[2018-06-05] MEDS ORDERED: MAGNESIUM SULF RIDER 4 GM in PREMIX 1 EACH IV PRN (14:02)
[2018-06-05] MEDS ORDERED: SODIUM CHLORIDE 0.9% 1,000 ML IV SCH (14:02)
[2018-06-05] MEDS ORDERED: POTASSIUM CHLORIDE INJ 10 MEQ in SODIUM CHLORIDE 0.9% 1,000 ML IV SCH (19:38)
[2018-06-05] MEDS ORDERED: traMADol 50 MG TABLET PO PRN (19:41)
[2018-06-06] MEDS: ALBUTEROL/IPRATROPIUM 3 ML NEB RESP TX SCH ×7 (00:18→23:23)
[2018-06-06 05:18] LABS: Basophils % 0.2 % (0.0-0.8); Eosinophils # 0.1 10*3/uL (0.0-0.87); Eosinophils % 1.3 % (0.00-10.9); Hematocrit 35.7 VOL% (42.0-52.0); Hemoglobin 11.4 GM/DL (14.0-18.0); Immature Granulocytes % 0.8 %; Immature Granulocytes Absolute 0.05 #; Lymphocytes % 14.8 % (21.2-54.2); Mean Corpuscular HGB Conc 31.9 GM/DL (32-36); Mean Corpuscular Hemoglobin 32 PG (27-34); Mean Platelet Volume 10.3 FL (9.6-12.0); Monocytes # 0.4 10*3/uL (0.11-0.8); Monocytes % 6.9 % (1.7-12.7); Neutrophils # 4.9 10*3/uL (1.4-7.4); Platelet Count 157 T/CUMM (130-400); Red Blood Count 3.57 MC/CUMM (3.8-5.5); Red Cell Distribution Width 16.1 % (9.3-17.3); White Blood Count 6.4 T/CUMM (4-12)
[2018-06-06 06:08] LABS: Alanine Aminotransferase < 9 U/L (16-61); Albumin 2.2 G/DL (3.4-5.0); Alkaline Phosphatase 42 U/L (45-117); Aspartate Amino Transferase 9 U/L (0-37); Blood Urea Nitrogen 10 MG/DL (7-18); Calcium 7.9 MG/DL (8.5-10.1); Glucose 93 MG/DL (74-106); Osmolality,Calculated 281.1 MOS/KG (273-304); Potassium 3.4 MMOL/L (3.5-5.1); Sodium 142 MMOL/L (136-145); Thyroid Stimulating Hormone 0.864 uIU/ml (0.358-3.74); Total Protein 6.3 G/DL (6.4-8.3)
[2018-06-06] MEDS: SODIUM CHLOR 0.9% KCL 20 MEQ 20 MEQ/1,000 ML BAG IV SCH (08:36)
[2018-06-06] MEDS: LEVOFLOXACIN INJ 500 MG in PREMIX 1 EACH IV SCH (08:39)
[2018-06-06] MEDS: FOLIC ACID 1 MG TABLET PO SCH (08:39)
[2018-06-06] MEDS: POTASSIUM CHLORIDE 10 MEQ TABLET PO SCH ×2 (08:39→21:38)
[2018-06-06] MEDS: PANTOPRAZOLE 40 MG TABLET PO SCH (08:39)
[2018-06-06] MEDS: predniSONE 10 MG TABLET PO SCH (08:40)
[2018-06-06] MEDS ORDERED: METHOTREXATE 2.5 MG TABLET PO SCH (09:00)
[2018-06-07] MEDS: ALBUTEROL/IPRATROPIUM 3 ML NEB RESP TX SCH ×6 (03:03→23:24)
[2018-06-07 04:35] LABS: Basophils % 0.2 % (0.0-0.8); Eosinophils % 0.7 % (0.00-10.9); Hematocrit 34.1 VOL% (42.0-52.0); Hemoglobin 10.6 GM/DL (14.0-18.0); Immature Granulocytes % 0.9 %; Immature Granulocytes Absolute 0.05 #; Lymphocytes # 1.2 10*3/uL (1.4-4.0); Lymphocytes % 20.2 % (21.2-54.2); Mean Corpuscular HGB Conc 31.1 GM/DL (32-36); Mean Corpuscular Hemoglobin 32 PG (27-34); Mean Corpuscular Volume 101.5 FL (87-102); Mean Platelet Volume 10.8 FL (9.6-12.0); Monocytes # 0.6 10*3/uL (0.11-0.8); Monocytes % 10.4 % (1.7-12.7); Neutrophils % 67.6 % (38.7-73.9); Platelet Count 176 T/CUMM (130-400); Red Blood Count 3.36 MC/CUMM (3.8-5.5); Red Cell Distribution Width 16.3 % (9.3-17.3); White Blood Count 5.9 T/CUMM (4-12)
[2018-06-07 05:15] LABS: Alanine Aminotransferase < 6 U/L (16-61); Alkaline Phosphatase 41 U/L (45-117); Aspartate Amino Transferase 13 U/L (0-37); Blood Urea Nitrogen 10 MG/DL (7-18); Calcium 8.1 MG/DL (8.5-10.1); Glucose 85 MG/DL (74-106); Osmolality,Calculated 283.8 MOS/KG (273-304); Potassium 3.7 MMOL/L (3.5-5.1); Sodium 144 MMOL/L (136-145); Total Protein 6.2 G/DL (6.4-8.3)
[2018-06-07 05:30] LABS: Hypochromasia 1+; Lymphocytes 19 % (20-55); Platelet Estimate Normal; Segmented Neutrophils 76 % (50-85); Total Cells Counted 100
[2018-06-07 05:31] LABS: Ovalocytes Slight
[2018-06-07] MEDS: methylPREDNISolone SOD SUC 40 MG/1 ML VIAL IV SCH ×2 (08:48→21:01)
[2018-06-07] MEDS: LEVOFLOXACIN INJ 500 MG in PREMIX 1 EACH IV SCH (08:51)
[2018-06-07] MEDS: POTASSIUM CHLORIDE 10 MEQ TABLET PO SCH ×2 (08:53→21:04)
[2018-06-07] MEDS: predniSONE 10 MG TABLET PO SCH (08:53)
[2018-06-07] MEDS: PANTOPRAZOLE 40 MG TABLET PO SCH (08:54)
[2018-06-07] MEDS: FOLIC ACID 1 MG TABLET PO SCH (09:24)
[2018-06-07] MEDS: SODIUM CHLOR 0.9% KCL 20 MEQ 20 MEQ/1,000 ML BAG IV SCH ×2 (14:32)
[2018-06-07] MEDS ORDERED: Etanercept [Enbrel] 25 MG SUBCUT SCH (19:41)
[2018-06-08] MEDS: ALBUTEROL/IPRATROPIUM 3 ML NEB RESP TX SCH ×2 (03:43→07:36)
[2018-06-08] MEDS: SODIUM CHLOR 0.9% KCL 20 MEQ 20 MEQ/1,000 ML BAG IV SCH (03:50)
[2018-06-08 06:44] LABS: Basophils % 0.1 % (0.0-0.8); Hematocrit 35.6 VOL% (42.0-52.0); Hemoglobin 11.5 GM/DL (14.0-18.0); Immature Granulocytes % 0.6 %; Immature Granulocytes Absolute 0.05 #; Lymphocytes # 0.8 10*3/uL (1.4-4.0); Lymphocytes % 9.6 % (21.2-54.2); Mean Corpuscular HGB Conc 32.3 GM/DL (32-36); Mean Corpuscular Hemoglobin 32 PG (27-34); Mean Corpuscular Volume 99.2 FL (87-102); Mean Platelet Volume 10.3 FL (9.6-12.0); Monocytes # 0.3 10*3/uL (0.11-0.8); Monocytes % 3.2 % (1.7-12.7); Neutrophils # 6.9 10*3/uL (1.4-7.4); Neutrophils % 86.5 % (38.7-73.9); Platelet Count 212 T/CUMM (130-400); Red Blood Count 3.59 MC/CUMM (3.8-5.5); Red Cell Distribution Width 16.1 % (9.3-17.3); White Blood Count 7.9 T/CUMM (4-12)
[2018-06-08 07:11] LABS: Calcium 8.1 MG/DL (8.5-10.1); Osmolality,Calculated 287.8 MOS/KG (273-304); Potassium 4.6 MMOL/L (3.5-5.1)
[2018-06-08] MEDS ORDERED: BENZONATATE 100 MG CAPSULE PO PRN (07:20)
[2018-06-08 07:34] VITALS: BP 128/79
[2018-06-08] MEDS: methylPREDNISolone SOD SUC 40 MG/1 ML VIAL IV SCH (08:39)
[2018-06-08] MEDS: FOLIC ACID 1 MG TABLET PO SCH (08:41)
[2018-06-08] MEDS: predniSONE 10 MG TABLET PO SCH (08:41)
[2018-06-08] MEDS: PANTOPRAZOLE 40 MG TABLET PO SCH (08:41)
[2018-06-08] MEDS: POTASSIUM CHLORIDE 10 MEQ TABLET PO SCH (08:41)
[2018-06-08] MEDS ORDERED: LEVOFLOXACIN 500 MG TABLET PO SCH (09:00)
[2018-06-08] MEDS ORDERED: BUDESONIDE/FORMOTEROL 160-4.5 INHALER 6 GM INH SCH (09:00)
== END 2018-06-08 10:28 | disposition home health service (06) | DRG 690 ==
LOC: N.ED 08:39 → SUATTDRO 11:03 → N.EDINP 11:03 → N.2E 13:01
PROVIDERS: ADMIT Family Medicine; ATTEND Family Medicine

== ENCOUNTER 2018-07-26 08:41 | Inpatient (IN) ==
[2018-07-26] MEDS ORDERED: SODIUM CHLORIDE 0.9% 1,900 ML IV ONE (09:01)
[2018-07-26] MEDS ORDERED: LEVOFLOXACIN INJ 500 MG in PREMIX 1 EACH IV STA (09:28)
[2018-07-26 09:34] LABS: Basophils % 0.2 % (0.0-0.8); Eosinophils # 0.1 10*3/uL (0.0-0.87); Eosinophils % 0.4 % (0.00-10.9); Hematocrit 38.7 VOL% (42.0-52.0); Hemoglobin 12.1 GM/DL (14.0-18.0); Immature Granulocytes % 0.8 %; Immature Granulocytes Absolute 0.11 #; Lymphocytes # 0.8 10*3/uL (1.4-4.0); Lymphocytes % 5.7 % (21.2-54.2); Mean Corpuscular HGB Conc 31.3 GM/DL (32-36); Mean Corpuscular Hemoglobin 31 PG (27-34); Mean Corpuscular Volume 98.5 FL (87-102); Mean Platelet Volume 9.4 FL (9.6-12.0); Monocytes # 0.4 10*3/uL (0.11-0.8); Monocytes % 2.5 % (1.7-12.7); Neutrophils # 12.8 10*3/uL (1.4-7.4); Neutrophils % 90.4 % (38.7-73.9); Platelet Count 338 T/CUMM (130-400); Red Blood Count 3.93 MC/CUMM (3.8-5.5); Red Cell Distribution Width 14.7 % (9.3-17.3); White Blood Count 14.1 T/CUMM (4-12)
[2018-07-26 09:43] LABS: Apearance,Urine CLOUDY (Clear); Bacteria,Urine Moderate /HPF (Few); Bilirubin,Urine Negative (Negative); Blood, Urine Small mg/dL (Negative); Glucose,Urine (UA) Negative (Negative); Ketones,Urine 5 mg/dL (Negative); Mucus,Urine Few /LPF (Occasional); Nitrite,Urine Negative (Negative); Protein,Urine 100 MG/DL; RBC,Urine 17 /HPF (0-4); Urine Color Yellow (Yellow); Urine Specific Gravity 1.015 (1.001-1.035); WBC,Urine 156 /HPF (0-6)
[2018-07-26] MEDS ORDERED: ONDANSETRON 4 MG/2 ML VIAL IV PRN (09:45)
[2018-07-26 09:56] LABS: Alanine Aminotransferase 12 U/L (16-61); Albumin 2.1 G/DL (3.4-5.0); Alkaline Phosphatase 66 U/L (45-117); Aspartate Amino Transferase 17 U/L (0-37); Blood Urea Nitrogen 15 MG/DL (7-18); Calcium 8.5 MG/DL (8.5-10.1); Glucose 95 MG/DL (74-106); Osmolality,Calculated 279.4 MOS/KG (273-304); Potassium 3.8 MMOL/L (3.5-5.1); Sodium 140 MMOL/L (136-145); Total Protein 7.6 G/DL (6.4-8.3)
[2018-07-26 09:57] LABS: Lactic Acid 3.4 MMOL/L (0.4-2.0)
[2018-07-26] MEDS ORDERED: PHENYLEPHRINE DRIP 40 MG/250 ML PREMIX IV PRN (13:01)
[2018-07-26] MEDS: DEXTROSE 5% NACL 0.45% 1,000 ML IV SCH (15:01)
[2018-07-26] MEDS: cefTRIAXone 1,000 MG in SYRINGE 1 EACH IV SCH (15:03)
[2018-07-26] MEDS: methylPREDNISolone SOD SUC 40 MG/1 ML VIAL IV SCH ×2 (15:03→22:23)
[2018-07-26] MEDS: ALBUTEROL/IPRATROPIUM 3 ML NEB RESP TX SCH ×2 (15:20→19:29)
[2018-07-26] MEDS ORDERED: NOREPINEPHRINE 8 MG in SODIUM CHLORIDE 0.9% 242 ML IV PRN (19:34)
[2018-07-26] MEDS: DOCUSATE SODIUM 100 MG CAPSULE PO SCH (20:32)
[2018-07-27] MEDS: ALBUTEROL/IPRATROPIUM 3 ML NEB RESP TX SCH ×7 (00:10→23:51)
[2018-07-27] MEDS: DEXTROSE 5% NACL 0.45% 1,000 ML IV SCH ×3 (01:13→21:58)
[2018-07-27 03:22] LABS: Basophils % 0.1 % (0.0-0.8); Hematocrit 34.8 VOL% (42.0-52.0); Hemoglobin 10.6 GM/DL (14.0-18.0); Immature Granulocytes % 1.1 %; Immature Granulocytes Absolute 0.14 #; Lymphocytes # 1.2 10*3/uL (1.4-4.0); Lymphocytes % 8.9 % (21.2-54.2); Mean Corpuscular HGB Conc 30.5 GM/DL (32-36); Mean Corpuscular Hemoglobin 31 PG (27-34); Mean Corpuscular Volume 101.2 FL (87-102); Mean Platelet Volume 9.7 FL (9.6-12.0); Monocytes # 0.2 10*3/uL (0.11-0.8); Monocytes % 1.7 % (1.7-12.7); Neutrophils # 11.5 10*3/uL (1.4-7.4); Neutrophils % 88.2 % (38.7-73.9); Platelet Count 327 T/CUMM (130-400); Red Blood Count 3.44 MC/CUMM (3.8-5.5); Red Cell Distribution Width 14.8 % (9.3-17.3)
[2018-07-27 04:10] LABS: Albumin 1.6 G/DL (3.4-5.0); Bilirubin,Total 0.7 MG/DL (0.2-1.0); Calcium 8.1 MG/DL (8.5-10.1); Osmolality,Calculated 284.3 MOS/KG (273-304); Potassium 4.1 MMOL/L (3.5-5.1); Risk Ratio 3.25; Thyroid Stimulating Hormone 0.341 uIU/ml (0.358-3.74); Total Protein 6.6 G/DL (6.4-8.3)
[2018-07-27 04:46] LABS: Apearance,Urine CLEAR (Clear); Bilirubin,Urine Negative (Negative); Blood, Urine Small mg/dL (Negative); Glucose,Urine (UA) Negative (Negative); Ketones,Urine Negative (Negative); Mucus,Urine Occasional /LPF (Occasional); Nitrite,Urine Positive (Negative); Protein,Urine Negative; RBC,Urine 3 /HPF (0-4); Urine Color Yellow (Yellow); Urine Specific Gravity 1.009 (1.001-1.035); Urine Urobilinogen < 2.0 EU/DL (0.2-1.0); WBC,Urine 19 /HPF (0-6)
[2018-07-27 04:49] LABS: Platelet Estimate Normal
[2018-07-27] MEDS: methylPREDNISolone SOD SUC 40 MG/1 ML VIAL IV SCH ×3 (06:26→21:55)
[2018-07-27] MEDS: PANTOPRAZOLE 40 MG TABLET PO SCH (09:17)
[2018-07-27] MEDS: DOCUSATE SODIUM 100 MG CAPSULE PO SCH ×2 (09:17→20:17)
[2018-07-27] MEDS: cefTRIAXone 1,000 MG in SYRINGE 1 EACH IV SCH (14:24)
[2018-07-27] MEDS ORDERED: AZITHROMYCIN INJ 500 MG in SODIUM CHLORIDE 0.9% 250 ML IV ONE (15:25)
[2018-07-27] MEDS ORDERED: traMADol 50 MG TABLET PO PRN (15:25)
[2018-07-27] MEDS: FOLIC ACID 1 MG TABLET PO SCH (15:39)
[2018-07-27] MEDS: BUDESONIDE/FORMOTEROL 160-4.5 INHALER 6 GM INH SCH ×2 (18:20→20:18)
[2018-07-28] MEDS: ALBUTEROL/IPRATROPIUM 3 ML NEB RESP TX SCH ×6 (04:03→22:30)
[2018-07-28 04:38] LABS: Basophils % 0.1 % (0.0-0.8); Hemoglobin 10.2 GM/DL (14.0-18.0); Immature Granulocytes % 1.2 %; Immature Granulocytes Absolute 0.21 #; Lymphocytes # 1.2 10*3/uL (1.4-4.0); Lymphocytes % 6.9 % (21.2-54.2); Mean Corpuscular Hemoglobin 30 PG (27-34); Mean Corpuscular Volume 101.2 FL (87-102); Mean Platelet Volume 9.6 FL (9.6-12.0); Monocytes # 0.5 10*3/uL (0.11-0.8); Monocytes % 2.9 % (1.7-12.7); Neutrophils # 15.1 10*3/uL (1.4-7.4); Neutrophils % 88.9 % (38.7-73.9); Platelet Count 323 T/CUMM (130-400); Red Blood Count 3.36 MC/CUMM (3.8-5.5); Red Cell Distribution Width 14.8 % (9.3-17.3)
[2018-07-28 05:02] LABS: Calcium 7.9 MG/DL (8.5-10.1); Osmolality,Calculated 290.7 MOS/KG (273-304); Potassium 3.8 MMOL/L (3.5-5.1)
[2018-07-28] MEDS: methylPREDNISolone SOD SUC 40 MG/1 ML VIAL IV SCH ×3 (05:48→21:29)
[2018-07-28] MEDS: DEXTROSE 5% NACL 0.45% 1,000 ML IV SCH ×2 (07:38→16:50)
[2018-07-28] MEDS: PANTOPRAZOLE 40 MG TABLET PO SCH (08:53)
[2018-07-28] MEDS: BUDESONIDE/FORMOTEROL 160-4.5 INHALER 6 GM INH SCH ×2 (08:53→21:29)
[2018-07-28] MEDS: DOCUSATE SODIUM 100 MG CAPSULE PO SCH ×2 (08:53→21:29)
[2018-07-28] MEDS: AZITHROMYCIN INJ 250 MG in SODIUM CHLORIDE 0.9% 250 ML IV SCH (08:53)
[2018-07-28] MEDS: FOLIC ACID 1 MG TABLET PO SCH (08:53)
[2018-07-28] MEDS: cefTRIAXone 1,000 MG in SYRINGE 1 EACH IV SCH (16:14)
[2018-07-28] MEDS: SODIUM CHLORIDE 0.45% 1,000 ML IV SCH (16:53)
[2018-07-28] MEDS: ZINC OXIDE PASTE 113 GM TUBE TOP SCH (17:51)
[2018-07-29] MEDS: ALBUTEROL/IPRATROPIUM 3 ML NEB RESP TX SCH ×6 (03:00→22:50)
[2018-07-29 04:18] LABS: Calcium 7.8 MG/DL (8.5-10.1); Osmolality,Calculated 292.6 MOS/KG (273-304); Potassium 4.3 MMOL/L (3.5-5.1)
[2018-07-29] MEDS: methylPREDNISolone SOD SUC 40 MG/1 ML VIAL IV SCH ×3 (05:39→21:34)
[2018-07-29] MEDS: FOLIC ACID 1 MG TABLET PO SCH (09:55)
[2018-07-29] MEDS: PANTOPRAZOLE 40 MG TABLET PO SCH (09:55)
[2018-07-29] MEDS: ZINC OXIDE PASTE 113 GM TUBE TOP SCH ×2 (09:55→20:16)
[2018-07-29] MEDS: DOCUSATE SODIUM 100 MG CAPSULE PO SCH ×2 (09:55→20:16)
[2018-07-29] MEDS: AZITHROMYCIN INJ 250 MG in SODIUM CHLORIDE 0.9% 250 ML IV SCH (09:56)
[2018-07-29] MEDS: BUDESONIDE/FORMOTEROL 160-4.5 INHALER 6 GM INH SCH ×2 (09:57→20:16)
[2018-07-29] MEDS: SODIUM CHLORIDE 0.45% 1,000 ML IV SCH (13:53)
[2018-07-29] MEDS: cefTRIAXone 1,000 MG in SYRINGE 1 EACH IV SCH (14:42)
[2018-07-29] MEDS: NYSTATIN 500,000 UNIT/5 ML UDCUP SWISH/SWAL SCH ×2 (17:21→20:16)
[2018-07-30] MEDS: ALBUTEROL/IPRATROPIUM 3 ML NEB RESP TX SCH ×4 (02:32→19:43)
[2018-07-30] MEDS: methylPREDNISolone SOD SUC 40 MG/1 ML VIAL IV SCH ×2 (07:34→17:36)
[2018-07-30] MEDS: ZINC OXIDE PASTE 113 GM TUBE TOP SCH ×3 (08:33→21:10)
[2018-07-30] MEDS: cefTRIAXone 1,000 MG in SYRINGE 1 EACH IV SCH (08:34)
[2018-07-30] MEDS: DOCUSATE SODIUM 100 MG CAPSULE PO SCH ×2 (08:38→21:04)
[2018-07-30] MEDS: AZITHROMYCIN 250 MG TABLET PO SCH (08:38)
[2018-07-30] MEDS: FOLIC ACID 1 MG TABLET PO SCH (08:38)
[2018-07-30] MEDS: PANTOPRAZOLE 40 MG TABLET PO SCH (08:38)
[2018-07-30] MEDS: BUDESONIDE/FORMOTEROL 160-4.5 INHALER 6 GM INH SCH ×2 (08:39→21:05)
[2018-07-30] MEDS: NYSTATIN 500,000 UNIT/5 ML UDCUP SWISH/SWAL SCH ×5 (08:39→21:04)
[2018-07-30] MEDS: SODIUM CHLORIDE 0.45% 1,000 ML IV SCH (08:40)
[2018-07-31] MEDS: methylPREDNISolone SOD SUC 40 MG/1 ML VIAL IV SCH ×3 (02:10→16:53)
[2018-07-31] MEDS: SODIUM CHLORIDE 0.45% 1,000 ML IV SCH (02:11)
[2018-07-31] MEDS: ALBUTEROL/IPRATROPIUM 3 ML NEB RESP TX SCH ×4 (02:14→18:55)
[2018-07-31 05:04] LABS: Basophils % 0.2 % (0.0-0.8); Eosinophils % 0.1 % (0.00-10.9); Hematocrit 35.4 VOL% (42.0-52.0); Hemoglobin 10.7 GM/DL (14.0-18.0); Immature Granulocytes % 3.4 %; Immature Granulocytes Absolute 0.48 #; Lymphocytes # 1.6 10*3/uL (1.4-4.0); Lymphocytes % 11.3 % (21.2-54.2); Mean Corpuscular HGB Conc 30.2 GM/DL (32-36); Mean Corpuscular Hemoglobin 30 PG (27-34); Mean Corpuscular Volume 100.3 FL (87-102); Mean Platelet Volume 9.7 FL (9.6-12.0); Monocytes # 0.8 10*3/uL (0.11-0.8); Monocytes % 5.7 % (1.7-12.7); NRBC # 0.02 10*3/uL; Neutrophils # 11.2 10*3/uL (1.4-7.4); Neutrophils % 79.3 % (38.7-73.9); Platelet Count 287 T/CUMM (130-400); Red Blood Count 3.53 MC/CUMM (3.8-5.5); Red Cell Distribution Width 15.3 % (9.3-17.3); White Blood Count 14.1 T/CUMM (4-12)
[2018-07-31 05:40] LABS: Calcium 7.7 MG/DL (8.5-10.1); Osmolality,Calculated 289.7 MOS/KG (273-304); Potassium 3.9 MMOL/L (3.5-5.1)
[2018-07-31] MEDS: cefTRIAXone 1,000 MG in SYRINGE 1 EACH IV SCH (08:41)
[2018-07-31] MEDS: PANTOPRAZOLE 40 MG TABLET PO SCH (08:42)
[2018-07-31] MEDS: FOLIC ACID 1 MG TABLET PO SCH (08:42)
[2018-07-31] MEDS: NYSTATIN 500,000 UNIT/5 ML UDCUP SWISH/SWAL SCH ×4 (08:42→20:53)
[2018-07-31] MEDS: DOCUSATE SODIUM 100 MG CAPSULE PO SCH ×2 (08:42→20:53)
[2018-07-31] MEDS: AZITHROMYCIN 250 MG TABLET PO SCH (08:42)
[2018-07-31] MEDS: BUDESONIDE/FORMOTEROL 160-4.5 INHALER 6 GM INH SCH ×2 (09:57→20:54)
[2018-07-31] MEDS: ZINC OXIDE PASTE 113 GM TUBE TOP SCH ×2 (09:57→20:53)
[2018-07-31] MEDS: ACETAMINOPHEN 325 MG TABLET PO PRN (17:32)
[2018-08-01] MEDS: ALBUTEROL/IPRATROPIUM 3 ML NEB RESP TX SCH ×4 (00:10→19:31)
[2018-08-01] MEDS: SODIUM CHLORIDE 0.45% 1,000 ML IV SCH (01:00)
[2018-08-01] MEDS: methylPREDNISolone SOD SUC 40 MG/1 ML VIAL IV SCH (01:12)
[2018-08-01 05:44] LABS: Basophils % 0.2 % (0.0-0.8); Hematocrit 35.6 VOL% (42.0-52.0); Hemoglobin 10.9 GM/DL (14.0-18.0); Immature Granulocytes % 3.4 %; Immature Granulocytes Absolute 0.58 #; Lymphocytes # 1.4 10*3/uL (1.4-4.0); Lymphocytes % 8.1 % (21.2-54.2); Mean Corpuscular HGB Conc 30.6 GM/DL (32-36); Mean Corpuscular Hemoglobin 31 PG (27-34); Mean Corpuscular Volume 99.7 FL (87-102); Mean Platelet Volume 9.7 FL (9.6-12.0); Monocytes # 0.5 10*3/uL (0.11-0.8); Monocytes % 3.2 % (1.7-12.7); Neutrophils # 14.5 10*3/uL (1.4-7.4); Neutrophils % 85.1 % (38.7-73.9); Platelet Count 243 T/CUMM (130-400); Red Blood Count 3.57 MC/CUMM (3.8-5.5); Red Cell Distribution Width 15.6 % (9.3-17.3); White Blood Count 17.1 T/CUMM (4-12)
[2018-08-01 06:02] LABS: Calcium 7.9 MG/DL (8.5-10.1); Osmolality,Calculated 289.7 MOS/KG (273-304)
[2018-08-01 06:31] LABS: Lymphocytes 9 % (20-55); Nucleated Red Blood Cells 1 (0-5); Segmented Neutrophils 89 % (50-85); Total Cells Counted 100
[2018-08-01 06:32] LABS: Platelet Estimate Normal
[2018-08-01] MEDS: FOLIC ACID 1 MG TABLET PO SCH (08:41)
[2018-08-01] MEDS: DOCUSATE SODIUM 100 MG CAPSULE PO SCH ×2 (08:41→21:44)
[2018-08-01] MEDS: PANTOPRAZOLE 40 MG TABLET PO SCH (08:41)
[2018-08-01] MEDS: predniSONE 20 MG TABLET PO SCH (08:41)
[2018-08-01] MEDS: NYSTATIN 500,000 UNIT/5 ML UDCUP SWISH/SWAL SCH ×4 (08:41→21:44)
[2018-08-01] MEDS: ZINC OXIDE PASTE 113 GM TUBE TOP SCH ×2 (08:42→21:48)
[2018-08-01] MEDS: BUDESONIDE/FORMOTEROL 160-4.5 INHALER 6 GM INH SCH ×2 (08:42→21:49)
[2018-08-01] MEDS: cefTRIAXone 1,000 MG in SYRINGE 1 EACH IV SCH (08:43)
[2018-08-01 11:45] LABS: M. Tuberculosis PCR Result Negative (Negative); M. Tuberculosis PCR Source SPUTUM
[2018-08-02] MEDS: ALBUTEROL/IPRATROPIUM 3 ML NEB RESP TX SCH ×4 (00:14→19:44)
[2018-08-02] MEDS: ZINC OXIDE PASTE 113 GM TUBE TOP SCH ×2 (09:07→21:31)
[2018-08-02] MEDS: BUDESONIDE/FORMOTEROL 160-4.5 INHALER 6 GM INH SCH ×2 (09:07→21:31)
[2018-08-02] MEDS: PANTOPRAZOLE 40 MG TABLET PO SCH (09:07)
[2018-08-02] MEDS: FOLIC ACID 1 MG TABLET PO SCH (09:08)
[2018-08-02] MEDS: NYSTATIN 500,000 UNIT/5 ML UDCUP SWISH/SWAL SCH ×4 (09:08→21:31)
[2018-08-02] MEDS: DOCUSATE SODIUM 100 MG CAPSULE PO SCH ×2 (09:08→21:31)
[2018-08-02] MEDS: predniSONE 20 MG TABLET PO SCH (09:08)
[2018-08-02] MEDS: cefTRIAXone 1,000 MG in SYRINGE 1 EACH IV SCH (09:08)
[2018-08-02 10:13] LABS: Basophils # 0.1 10*3/uL (0.0-0.2); Basophils % 0.5 % (0.0-0.8); Eosinophils # 0.2 10*3/uL (0.0-0.87); Eosinophils % 1.2 % (0.00-10.9); Hematocrit 40.5 VOL% (42.0-52.0); Hemoglobin 12.7 GM/DL (14.0-18.0); Immature Granulocytes % 5.4 %; Immature Granulocytes Absolute 1.09 #; Lymphocytes # 2.6 10*3/uL (1.4-4.0); Lymphocytes % 12.9 % (21.2-54.2); Mean Corpuscular HGB Conc 31.4 GM/DL (32-36); Mean Corpuscular Hemoglobin 31 PG (27-34); Mean Platelet Volume 9.6 FL (9.6-12.0); Monocytes # 0.7 10*3/uL (0.11-0.8); Monocytes % 3.3 % (1.7-12.7); Neutrophils # 15.6 10*3/uL (1.4-7.4); Neutrophils % 76.7 % (38.7-73.9); Platelet Count 246 T/CUMM (130-400); Red Blood Count 4.09 MC/CUMM (3.8-5.5); Red Cell Distribution Width 15.9 % (9.3-17.3); White Blood Count 20.3 T/CUMM (4-12)
[2018-08-02 10:22] LABS: ABG Base Excess 1.5 MMOL/L (-2.5-2.5); ABG HCO3 25.7 MMOL/L (20-26); ABG Oxygen Saturation 97.7 % (95-100); ABG PCO2 26.4 MM HG (35-48); ABG PH 7.544 (7.35-7.45); ABG TCO2 19.9 MMOL/L (23-27)
[2018-08-02 10:38] LABS: Calcium 8.2 MG/DL (8.5-10.1); Osmolality,Calculated 282.3 MOS/KG (273-304); Potassium 3.7 MMOL/L (3.5-5.1)
[2018-08-02] MEDS: ACETAMINOPHEN 325 MG TABLET PO PRN (10:40)
[2018-08-02 11:22] LABS: Hypochromasia Slight; Lymphocytes 12 % (20-55); Macrocytosis Slight; Platelet Estimate Normal; Segmented Neutrophils 81 % (50-85); Total Cells Counted 100
[2018-08-02] MEDS ORDERED: VANCOMYCIN INJ 1,000 MG in SODIUM CHLORIDE 0.9% 250 ML IV ONE (11:51)
[2018-08-02] MEDS ORDERED: MEROPENEM 1,000 MG in SODIUM CHLORIDE 0.9% 100 ML IV ONE (11:52)
[2018-08-02] MEDS: ENOXAPARIN 40 MG/0.4 ML SYRINGE SUBCUT SCH (13:15)
[2018-08-02] MEDS: MEROPENEM 1,000 MG in SODIUM CHLORIDE 0.9% 100 ML IV SCH ×2 (13:16→21:20)
[2018-08-02] MEDS: VANCOMYCIN INJ 1,000 MG in SODIUM CHLORIDE 0.9% 250 ML IV SCH (13:18)
[2018-08-02] MEDS ORDERED: SODIUM CHLORIDE 0.9% 500 ML IV ONE (15:40)
[2018-08-02] MEDS ORDERED: NOREPINEPHRINE 8 MG in SODIUM CHLORIDE 0.9% 242 ML IV PRN (15:40)
[2018-08-03] MEDS: VANCOMYCIN INJ 1,000 MG in SODIUM CHLORIDE 0.9% 250 ML IV SCH ×2 (00:50→14:40)
[2018-08-03] MEDS: ALBUTEROL/IPRATROPIUM 3 ML NEB RESP TX SCH ×4 (01:46→19:12)
[2018-08-03] MEDS: MEROPENEM 1,000 MG in SODIUM CHLORIDE 0.9% 100 ML IV SCH ×3 (05:18→21:53)
[2018-08-03 05:25] LABS: Basophils % 0.1 % (0.0-0.8); Eosinophils # 0.3 10*3/uL (0.0-0.87); Eosinophils % 1.9 % (0.00-10.9); Hematocrit 32.9 VOL% (42.0-52.0); Hemoglobin 10.1 GM/DL (14.0-18.0); Immature Granulocytes Absolute 0.42 #; Lymphocytes # 2.3 10*3/uL (1.4-4.0); Lymphocytes % 16.4 % (21.2-54.2); Mean Corpuscular HGB Conc 30.7 GM/DL (32-36); Mean Corpuscular Hemoglobin 31 PG (27-34); Monocytes # 0.8 10*3/uL (0.11-0.8); Monocytes % 5.8 % (1.7-12.7); Neutrophils # 10.4 10*3/uL (1.4-7.4); Neutrophils % 72.8 % (38.7-73.9); Platelet Count 213 T/CUMM (130-400); Red Blood Count 3.29 MC/CUMM (3.8-5.5); Red Cell Distribution Width 16.1 % (9.3-17.3); White Blood Count 14.2 T/CUMM (4-12)
[2018-08-03 05:49] LABS: Calcium 7.7 MG/DL (8.5-10.1); Potassium 3.5 MMOL/L (3.5-5.1)
[2018-08-03] MEDS ORDERED: FUROSEMIDE 20 MG/2 ML VIAL IV ONE (07:28)
[2018-08-03] MEDS: FOLIC ACID 1 MG TABLET PO SCH (08:37)
[2018-08-03] MEDS: predniSONE 20 MG TABLET PO SCH (08:37)
[2018-08-03] MEDS: DOCUSATE SODIUM 100 MG CAPSULE PO SCH ×2 (08:37→21:54)
[2018-08-03] MEDS: NYSTATIN 500,000 UNIT/5 ML UDCUP SWISH/SWAL SCH ×4 (08:37→21:54)
[2018-08-03] MEDS: PANTOPRAZOLE 40 MG TABLET PO SCH (08:37)
[2018-08-03] MEDS: ZINC OXIDE PASTE 113 GM TUBE TOP SCH ×2 (08:38→21:55)
[2018-08-03] MEDS: BUDESONIDE/FORMOTEROL 160-4.5 INHALER 6 GM INH SCH ×2 (08:38→21:54)
[2018-08-03] MEDS: ENOXAPARIN 40 MG/0.4 ML SYRINGE SUBCUT SCH (13:18)
[2018-08-04] MEDS: ALBUTEROL/IPRATROPIUM 3 ML NEB RESP TX SCH ×4 (00:05→19:11)
[2018-08-04] MEDS: VANCOMYCIN INJ 1,000 MG in SODIUM CHLORIDE 0.9% 250 ML IV SCH ×2 (03:26→17:00)
[2018-08-04] MEDS: MEROPENEM 1,000 MG in SODIUM CHLORIDE 0.9% 100 ML IV SCH ×2 (06:09→17:54)
[2018-08-04] MEDS: NYSTATIN 500,000 UNIT/5 ML UDCUP SWISH/SWAL SCH ×4 (09:40→21:38)
[2018-08-04] MEDS: ACETAMINOPHEN 325 MG TABLET PO PRN (09:40)
[2018-08-04] MEDS: predniSONE 20 MG TABLET PO SCH (09:41)
[2018-08-04] MEDS: DOCUSATE SODIUM 100 MG CAPSULE PO SCH ×2 (09:41→21:38)
[2018-08-04] MEDS: PANTOPRAZOLE 40 MG TABLET PO SCH (09:41)
[2018-08-04] MEDS: FOLIC ACID 1 MG TABLET PO SCH (09:41)
[2018-08-04] MEDS: ZINC OXIDE PASTE 113 GM TUBE TOP SCH ×2 (09:41→21:38)
[2018-08-04] MEDS: BUDESONIDE/FORMOTEROL 160-4.5 INHALER 6 GM INH SCH ×2 (09:41→21:39)
[2018-08-04] MEDS: PIPERACILLIN/TAZOBACTAM 3,375 MG in SODIUM CHLORIDE 0.9% 100 ML IV SCH ×2 (12:07→21:37)
[2018-08-04] MEDS: ENOXAPARIN 40 MG/0.4 ML SYRINGE SUBCUT SCH (12:17)
[2018-08-05] MEDS: ALBUTEROL/IPRATROPIUM 3 ML NEB RESP TX SCH ×4 (01:05→19:33)
[2018-08-05] MEDS: MEROPENEM 1,000 MG in SODIUM CHLORIDE 0.9% 100 ML IV SCH ×3 (01:51→17:35)
[2018-08-05] MEDS: PIPERACILLIN/TAZOBACTAM 3,375 MG in SODIUM CHLORIDE 0.9% 100 ML IV SCH ×3 (04:57→20:35)
[2018-08-05 06:25] LABS: Basophils % 0.1 % (0.0-0.8); Eosinophils # 0.1 10*3/uL (0.0-0.87); Eosinophils % 0.9 % (0.00-10.9); Hemoglobin 10.3 GM/DL (14.0-18.0); Immature Granulocytes % 1.6 %; Immature Granulocytes Absolute 0.17 #; Lymphocytes # 1.7 10*3/uL (1.4-4.0); Mean Corpuscular HGB Conc 30.3 GM/DL (32-36); Mean Corpuscular Hemoglobin 30 PG (27-34); Mean Corpuscular Volume 99.7 FL (87-102); Mean Platelet Volume 10.2 FL (9.6-12.0); Monocytes # 0.5 10*3/uL (0.11-0.8); Monocytes % 4.8 % (1.7-12.7); Neutrophils % 76.6 % (38.7-73.9); Platelet Count 208 T/CUMM (130-400); Red Blood Count 3.41 MC/CUMM (3.8-5.5); White Blood Count 10.4 T/CUMM (4-12)
[2018-08-05 06:56] LABS: Albumin 1.6 G/DL (3.4-5.0); Bilirubin,Total 0.6 MG/DL (0.2-1.0); Calcium 7.9 MG/DL (8.5-10.1); Osmolality,Calculated 288.7 MOS/KG (273-304); Potassium 3.8 MMOL/L (3.5-5.1)
[2018-08-05] MEDS: NYSTATIN 500,000 UNIT/5 ML UDCUP SWISH/SWAL SCH ×4 (09:40→20:34)
[2018-08-05] MEDS: FOLIC ACID 1 MG TABLET PO SCH (09:40)
[2018-08-05] MEDS: PANTOPRAZOLE 40 MG TABLET PO SCH (09:40)
[2018-08-05] MEDS: ACETAMINOPHEN 325 MG TABLET PO PRN (09:40)
[2018-08-05] MEDS: DOCUSATE SODIUM 100 MG CAPSULE PO SCH ×2 (09:41→20:34)
[2018-08-05] MEDS: predniSONE 20 MG TABLET PO SCH (09:41)
[2018-08-05] MEDS: ZINC OXIDE PASTE 113 GM TUBE TOP SCH ×2 (09:41→20:35)
[2018-08-05] MEDS: BUDESONIDE/FORMOTEROL 160-4.5 INHALER 6 GM INH SCH ×2 (09:41→20:35)
[2018-08-05] MEDS: VANCOMYCIN INJ 1,250 MG in SODIUM CHLORIDE 0.9% 250 ML IV SCH (11:43)
[2018-08-05] MEDS: ENOXAPARIN 40 MG/0.4 ML SYRINGE SUBCUT SCH (13:30)
[2018-08-06] MEDS: ALBUTEROL/IPRATROPIUM 3 ML NEB RESP TX SCH ×6 (00:47→23:01)
[2018-08-06] MEDS: VANCOMYCIN INJ 1,250 MG in SODIUM CHLORIDE 0.9% 250 ML IV SCH ×2 (01:03→19:01)
[2018-08-06] MEDS: MEROPENEM 1,000 MG in SODIUM CHLORIDE 0.9% 100 ML IV SCH (03:55)
[2018-08-06] MEDS: PIPERACILLIN/TAZOBACTAM 3,375 MG in SODIUM CHLORIDE 0.9% 100 ML IV SCH ×3 (05:18→22:04)
[2018-08-06] MEDS ORDERED: clonazePAM 0.5 MG TABLET PO SCH (09:00)
[2018-08-06] MEDS: ACETAMINOPHEN 325 MG TABLET PO PRN (10:00)
[2018-08-06] MEDS: IBUPROFEN 800 MG TABLET PO PRN (10:40)
[2018-08-06] MEDS: FOLIC ACID 1 MG TABLET PO SCH (10:52)
[2018-08-06] MEDS: DOCUSATE SODIUM 100 MG CAPSULE PO SCH ×2 (10:52→20:44)
[2018-08-06] MEDS: PANTOPRAZOLE 40 MG TABLET PO SCH (10:52)
[2018-08-06] MEDS: BUDESONIDE/FORMOTEROL 160-4.5 INHALER 6 GM INH SCH ×2 (10:53→20:45)
[2018-08-06] MEDS: NYSTATIN 500,000 UNIT/5 ML UDCUP SWISH/SWAL SCH ×4 (10:53→20:44)
[2018-08-06] MEDS: predniSONE 20 MG TABLET PO SCH (10:53)
[2018-08-06] MEDS: ZINC OXIDE PASTE 113 GM TUBE TOP SCH ×2 (10:53→20:45)
[2018-08-06] MEDS: THEOPHYLLINE ER (24 HR) 400 MG TABLET PO SCH (12:06)
[2018-08-06] MEDS: ENOXAPARIN 40 MG/0.4 ML SYRINGE SUBCUT SCH (14:45)
[2018-08-07] MEDS: VANCOMYCIN INJ 1,250 MG in SODIUM CHLORIDE 0.9% 250 ML IV SCH ×2 (01:55→14:15)
[2018-08-07] MEDS: ALBUTEROL/IPRATROPIUM 3 ML NEB RESP TX SCH ×6 (03:19→22:22)
[2018-08-07] MEDS: PIPERACILLIN/TAZOBACTAM 3,375 MG in SODIUM CHLORIDE 0.9% 100 ML IV SCH ×3 (03:55→21:25)
[2018-08-07 06:54] LABS: Albumin 1.6 G/DL (3.4-5.0); Bilirubin,Total 0.7 MG/DL (0.2-1.0); Calcium 7.6 MG/DL (8.5-10.1); Osmolality,Calculated 290.6 MOS/KG (273-304); Potassium 3.6 MMOL/L (3.5-5.1); Total Protein 6.2 G/DL (6.4-8.3)
[2018-08-07] MEDS ORDERED: MEPERIDINE 50 MG/1 ML VIAL IM ONE (07:00)
[2018-08-07] MEDS ORDERED: PROMETHAZINE 25 MG/1 ML VIAL IM ONE (07:00)
[2018-08-07] MEDS ORDERED: MIDAZOLAM 2 MG/2 ML VIAL ONE (07:10)
[2018-08-07] MEDS ORDERED: LIDOCAINE 2% 20 ML VIAL RESP TX ONE (07:30)
[2018-08-07] MEDS ORDERED: LIDOCAINE 1% 20 ML VIAL MISC INJ ONE (07:30)
[2018-08-07] MEDS ORDERED: MIDAZOLAM 2 MG/2 ML VIAL IV ONE (07:30)
[2018-08-07] MEDS ORDERED: LIDOCAINE 2% VISCOUS 100 ML BOTTLE SWISH/SPIT ONE (07:30)
[2018-08-07] MEDS: FOLIC ACID 1 MG TABLET PO SCH (11:05)
[2018-08-07] MEDS: BENZONATATE 100 MG CAPSULE PO PRN (11:05)
[2018-08-07] MEDS: PANTOPRAZOLE 40 MG TABLET PO SCH (11:05)
[2018-08-07] MEDS: predniSONE 20 MG TABLET PO SCH (11:05)
[2018-08-07] MEDS: NYSTATIN 500,000 UNIT/5 ML UDCUP SWISH/SWAL SCH ×4 (11:06→21:18)
[2018-08-07] MEDS: THEOPHYLLINE ER (24 HR) 400 MG TABLET PO SCH (11:06)
[2018-08-07] MEDS: BUDESONIDE/FORMOTEROL 160-4.5 INHALER 6 GM INH SCH ×2 (11:07→21:18)
[2018-08-07] MEDS: ZINC OXIDE PASTE 113 GM TUBE TOP SCH ×2 (11:07→21:18)
[2018-08-07] MEDS: DOCUSATE SODIUM 100 MG CAPSULE PO SCH ×2 (11:10→21:18)
[2018-08-07] MEDS: VORICONAZOLE 50 MG TABLET PO SCH ×2 (12:21→21:17)
[2018-08-07] MEDS: ENOXAPARIN 40 MG/0.4 ML SYRINGE SUBCUT SCH (12:22)
[2018-08-08] MEDS: VANCOMYCIN INJ 1,250 MG in SODIUM CHLORIDE 0.9% 250 ML IV SCH ×2 (02:18→14:29)
[2018-08-08] MEDS: ALBUTEROL/IPRATROPIUM 3 ML NEB RESP TX SCH ×5 (03:23→20:05)
[2018-08-08] MEDS: PIPERACILLIN/TAZOBACTAM 3,375 MG in SODIUM CHLORIDE 0.9% 100 ML IV SCH (04:38)
[2018-08-08 05:16] LABS: Basophils % 0.1 % (0.0-0.8); Hematocrit 30.7 VOL% (42.0-52.0); Hemoglobin 9.5 GM/DL (14.0-18.0); Immature Granulocytes % 1.1 %; Immature Granulocytes Absolute 0.13 #; Lymphocytes # 1.6 10*3/uL (1.4-4.0); Lymphocytes % 13.3 % (21.2-54.2); Mean Corpuscular HGB Conc 30.9 GM/DL (32-36); Mean Corpuscular Hemoglobin 31 PG (27-34); Mean Corpuscular Volume 99.7 FL (87-102); Monocytes # 0.5 10*3/uL (0.11-0.8); Neutrophils # 9.5 10*3/uL (1.4-7.4); Neutrophils % 81.5 % (38.7-73.9); Platelet Count 239 T/CUMM (130-400); Red Blood Count 3.08 MC/CUMM (3.8-5.5); Red Cell Distribution Width 15.6 % (9.3-17.3); White Blood Count 11.7 T/CUMM (4-12)
[2018-08-08 05:33] LABS: Osmolality,Calculated 287.8 MOS/KG (273-304); Potassium 3.5 MMOL/L (3.5-5.1)
[2018-08-08] MEDS: THEOPHYLLINE ER (24 HR) 400 MG TABLET PO SCH (09:47)
[2018-08-08] MEDS: DOCUSATE SODIUM 100 MG CAPSULE PO SCH ×2 (09:47→20:19)
[2018-08-08] MEDS: ZINC OXIDE PASTE 113 GM TUBE TOP SCH ×2 (09:47→20:19)
[2018-08-08] MEDS: VORICONAZOLE 50 MG TABLET PO SCH ×2 (09:47→20:19)
[2018-08-08] MEDS: PANTOPRAZOLE 40 MG TABLET PO SCH (09:47)
[2018-08-08] MEDS: predniSONE 20 MG TABLET PO SCH (09:47)
[2018-08-08] MEDS: FOLIC ACID 1 MG TABLET PO SCH (09:48)
[2018-08-08] MEDS: cefTAZidime 1,000 MG in SYRINGE 1 EACH IV SCH ×2 (09:48→16:46)
[2018-08-08] MEDS: BUDESONIDE/FORMOTEROL 160-4.5 INHALER 6 GM INH SCH ×2 (09:48→20:19)
[2018-08-08] MEDS: NYSTATIN 500,000 UNIT/5 ML UDCUP SWISH/SWAL SCH ×4 (09:48→20:19)
[2018-08-08] MEDS: ENOXAPARIN 40 MG/0.4 ML SYRINGE SUBCUT SCH (12:56)
[2018-08-09] MEDS: ALBUTEROL/IPRATROPIUM 3 ML NEB RESP TX SCH ×7 (00:06→23:10)
[2018-08-09] MEDS: cefTAZidime 1,000 MG in SYRINGE 1 EACH IV SCH ×3 (01:33→16:50)
[2018-08-09] MEDS: VANCOMYCIN INJ 1,250 MG in SODIUM CHLORIDE 0.9% 250 ML IV SCH (01:39)
[2018-08-09 05:36] LABS: Basophils % 0.1 % (0.0-0.8); Immature Granulocytes % 0.7 %; Immature Granulocytes Absolute 0.08 #; Lymphocytes # 1.5 10*3/uL (1.4-4.0); Lymphocytes % 13.6 % (21.2-54.2); Mean Corpuscular Hemoglobin 30 PG (27-34); Mean Corpuscular Volume 100.3 FL (87-102); Mean Platelet Volume 9.5 FL (9.6-12.0); Monocytes # 0.6 10*3/uL (0.11-0.8); Monocytes % 5.5 % (1.7-12.7); Neutrophils % 80.1 % (38.7-73.9); Platelet Count 246 T/CUMM (130-400); Red Blood Count 2.99 MC/CUMM (3.8-5.5); Red Cell Distribution Width 15.7 % (9.3-17.3); White Blood Count 11.2 T/CUMM (4-12)
[2018-08-09 05:49] LABS: Calcium 7.9 MG/DL (8.5-10.1); Osmolality,Calculated 291.4 MOS/KG (273-304); Potassium 3.5 MMOL/L (3.5-5.1)
[2018-08-09 06:14] LABS: Lymphocytes 8 % (20-55); Platelet Estimate Adequate; Segmented Neutrophils 86 % (50-85); Total Cells Counted 100
[2018-08-09 06:15] LABS: Hypochromasia 1+
[2018-08-09] MEDS: BUDESONIDE/FORMOTEROL 160-4.5 INHALER 6 GM INH SCH ×2 (09:24→21:22)
[2018-08-09] MEDS: NYSTATIN 500,000 UNIT/5 ML UDCUP SWISH/SWAL SCH ×4 (09:25→21:22)
[2018-08-09] MEDS: DOCUSATE SODIUM 100 MG CAPSULE PO SCH ×2 (09:25→21:22)
[2018-08-09] MEDS: predniSONE 20 MG TABLET PO SCH (09:25)
[2018-08-09] MEDS: THEOPHYLLINE ER (24 HR) 400 MG TABLET PO SCH (09:26)
[2018-08-09] MEDS: PANTOPRAZOLE 40 MG TABLET PO SCH (09:26)
[2018-08-09] MEDS: FOLIC ACID 1 MG TABLET PO SCH (09:26)
[2018-08-09] MEDS: ZINC OXIDE PASTE 113 GM TUBE TOP SCH ×2 (09:28→21:22)
[2018-08-09] MEDS: IBUPROFEN 800 MG TABLET PO PRN (09:34)
[2018-08-09] MEDS: ENOXAPARIN 40 MG/0.4 ML SYRINGE SUBCUT SCH (13:13)
[2018-08-10] MEDS: cefTAZidime 1,000 MG in SYRINGE 1 EACH IV SCH ×3 (01:33→16:59)
[2018-08-10] MEDS: ALBUTEROL/IPRATROPIUM 3 ML NEB RESP TX SCH ×6 (03:15→23:50)
[2018-08-10 04:58] LABS: Basophils % 0.1 % (0.0-0.8); Eosinophils % 0.1 % (0.00-10.9); Hematocrit 30.3 VOL% (42.0-52.0); Hemoglobin 9.2 GM/DL (14.0-18.0); Immature Granulocytes % 0.8 %; Immature Granulocytes Absolute 0.09 #; Lymphocytes # 1.9 10*3/uL (1.4-4.0); Mean Corpuscular HGB Conc 30.4 GM/DL (32-36); Mean Corpuscular Hemoglobin 31 PG (27-34); Mean Corpuscular Volume 100.7 FL (87-102); Mean Platelet Volume 9.5 FL (9.6-12.0); Monocytes # 0.5 10*3/uL (0.11-0.8); Monocytes % 4.6 % (1.7-12.7); Neutrophils # 8.5 10*3/uL (1.4-7.4); Neutrophils % 77.4 % (38.7-73.9); Platelet Count 262 T/CUMM (130-400); Red Blood Count 3.01 MC/CUMM (3.8-5.5); Red Cell Distribution Width 15.8 % (9.3-17.3)
[2018-08-10 05:19] LABS: Anisocytosis 1+; Platelet Estimate Normal
[2018-08-10 05:20] LABS: Polychromasia Slight
[2018-08-10 05:21] LABS: Macrocytosis 1+; Poikilocytosis Slight
[2018-08-10 05:25] LABS: Calcium 7.8 MG/DL (8.5-10.1); Osmolality,Calculated 291.4 MOS/KG (273-304); Potassium 3.5 MMOL/L (3.5-5.1)
[2018-08-10] MEDS: PANTOPRAZOLE 40 MG TABLET PO SCH (09:08)
[2018-08-10] MEDS: FOLIC ACID 1 MG TABLET PO SCH (09:08)
[2018-08-10] MEDS: THEOPHYLLINE ER (24 HR) 400 MG TABLET PO SCH (09:08)
[2018-08-10] MEDS: DOCUSATE SODIUM 100 MG CAPSULE PO SCH ×2 (09:08→20:23)
[2018-08-10] MEDS: predniSONE 20 MG TABLET PO SCH (09:08)
[2018-08-10] MEDS: ZINC OXIDE PASTE 113 GM TUBE TOP SCH ×2 (09:08→20:23)
[2018-08-10] MEDS: NYSTATIN 500,000 UNIT/5 ML UDCUP SWISH/SWAL SCH ×4 (09:08→20:23)
[2018-08-10] MEDS: BUDESONIDE/FORMOTEROL 160-4.5 INHALER 6 GM INH SCH ×2 (09:09→20:23)
[2018-08-10] MEDS: ENOXAPARIN 40 MG/0.4 ML SYRINGE SUBCUT SCH (09:12)
[2018-08-10] MEDS: IBUPROFEN 800 MG TABLET PO PRN (09:12)
[2018-08-10] MEDS: CEFUROXIME 500 MG TABLET PO SCH (20:23)
[2018-08-11] MEDS: cefTAZidime 1,000 MG in SYRINGE 1 EACH IV SCH ×2 (00:44→09:16)
[2018-08-11] MEDS: ALBUTEROL/IPRATROPIUM 3 ML NEB RESP TX SCH ×3 (03:27→11:15)
[2018-08-11 05:24] LABS: Eosinophils % 0.1 % (0.00-10.9); Hematocrit 31.4 VOL% (42.0-52.0); Hemoglobin 9.5 GM/DL (14.0-18.0); Immature Granulocytes % 0.8 %; Immature Granulocytes Absolute 0.09 #; Lymphocytes # 2.1 10*3/uL (1.4-4.0); Lymphocytes % 19.3 % (21.2-54.2); Mean Corpuscular HGB Conc 30.3 GM/DL (32-36); Mean Corpuscular Hemoglobin 30 PG (27-34); Mean Corpuscular Volume 100.3 FL (87-102); Mean Platelet Volume 9.8 FL (9.6-12.0); Monocytes # 0.4 10*3/uL (0.11-0.8); Monocytes % 3.5 % (1.7-12.7); Neutrophils # 8.2 10*3/uL (1.4-7.4); Neutrophils % 76.3 % (38.7-73.9); Platelet Count 269 T/CUMM (130-400); Red Blood Count 3.13 MC/CUMM (3.8-5.5); White Blood Count 10.8 T/CUMM (4-12)
[2018-08-11 05:39] LABS: Calcium 7.5 MG/DL (8.5-10.1); Osmolality,Calculated 287.6 MOS/KG (273-304)
[2018-08-11] MEDS: IBUPROFEN 800 MG TABLET PO PRN (08:57)
[2018-08-11] MEDS: PANTOPRAZOLE 40 MG TABLET PO SCH (09:15)
[2018-08-11] MEDS: NYSTATIN 500,000 UNIT/5 ML UDCUP SWISH/SWAL SCH ×2 (09:15→14:14)
[2018-08-11] MEDS: THEOPHYLLINE ER (24 HR) 400 MG TABLET PO SCH (09:15)
[2018-08-11] MEDS: FOLIC ACID 1 MG TABLET PO SCH (09:16)
[2018-08-11] MEDS: BENZONATATE 100 MG CAPSULE PO PRN (09:16)
[2018-08-11] MEDS: predniSONE 20 MG TABLET PO SCH (09:16)
[2018-08-11] MEDS: ZINC OXIDE PASTE 113 GM TUBE TOP SCH (09:16)
[2018-08-11] MEDS: DOCUSATE SODIUM 100 MG CAPSULE PO SCH (09:16)
[2018-08-11] MEDS: CEFUROXIME 500 MG TABLET PO SCH (09:16)
[2018-08-11] MEDS: BUDESONIDE/FORMOTEROL 160-4.5 INHALER 6 GM INH SCH (09:17)
[2018-08-11] MEDS: ENOXAPARIN 40 MG/0.4 ML SYRINGE SUBCUT SCH (09:17)
[2018-08-11] MEDS ORDERED: CLORAZEPATE 3.75 MG TABLET PO ONE (09:45)
[2018-08-11 12:25] VITALS: BP 150/67
== END 2018-08-11 14:26 | disposition home health service (06) | DRG 871 ==
LOC: N.ED 08:41 → N.EDINP 09:44 → N.ICU 10:24 → N.2E 07-27 15:12 → N.ICU 08-02 09:45 → N.2E 08-03 15:07
PROVIDERS: ADMIT Family Medicine; ATTEND Family Medicine

== ENCOUNTER 2018-08-14 09:19 | Inpatient (IN) ==
[2018-08-14] MEDS ORDERED: ETOMIDATE 20 MG/10 ML VIAL IV ONE ×2 (09:25→10:09)
[2018-08-14] MEDS ORDERED: ROCURONIUM 100 MG/10 ML VIAL IV ONE ×2 (09:26→10:10)
[2018-08-14] MEDS ORDERED: LEVOFLOXACIN INJ 500 MG in PREMIX 1 EACH IV STA (09:35)
[2018-08-14 10:08] LABS: ABG Base Excess -4.5 MMOL/L (-2.5-2.5); ABG HCO3 20.4 MMOL/L (20-26); ABG Oxygen Saturation 85.2 % (95-100); ABG PCO2 52.8 MM HG (35-48); ABG PH 7.251 (7.35-7.45); ABG PO2 68.3 MM HG (80-95); ABG TCO2 21.3 MMOL/L (23-27)
[2018-08-14 10:10] LABS: Alanine Aminotransferase 15 U/L (16-61); Albumin 1.9 G/DL (3.4-5.0); Alkaline Phosphatase 63 U/L (45-117); Aspartate Amino Transferase 22 U/L (0-37); Blood Urea Nitrogen 14 MG/DL (7-18); Calcium 8.2 MG/DL (8.5-10.1); Glucose 89 MG/DL (74-106); Lactic Acid 9.3 MMOL/L (0.4-2.0); Potassium 4.2 MMOL/L (3.5-5.1); Sodium 143 MMOL/L (136-145); Total Protein 6.6 G/DL (6.4-8.3)
[2018-08-14] MEDS: SODIUM CHLORIDE 0.9% 1,000 ML IV SCH ×4 (11:10→22:43)
[2018-08-14 11:15] LABS: ABG Base Excess -2.7 MMOL/L (-2.5-2.5); ABG Oxygen Saturation 90.1 % (95-100); ABG PCO2 44.3 MM HG (35-48); ABG PH 7.329 (7.35-7.45); ABG PO2 73.7 MM HG (80-95); ABG TCO2 21.1 MMOL/L (23-27); Allen Test Positive; Pt O2 Delivery Device Ventilator
[2018-08-14] MEDS ORDERED: METOPROLOL TARTRATE 5 MG/5 ML VIAL IV ONE ×2 (11:39→12:06)
[2018-08-14] MEDS ORDERED: ENOXAPARIN 80 MG/0.8 ML SYRINGE SUBCUT ONE (11:47)
[2018-08-14] MEDS: ASPIRIN CHEW 81 MG TABLET PO SCH (11:54)
[2018-08-14 12:00] LABS: Basophils % 0.1 % (0.0-0.8); Hematocrit 37.2 VOL% (42.0-52.0); Hemoglobin 11.4 GM/DL (14.0-18.0); Immature Granulocytes % 1.3 %; Immature Granulocytes Absolute 0.27 #; Lymphocytes # 1.7 10*3/uL (1.4-4.0); Lymphocytes % 8.3 % (21.2-54.2); Mean Corpuscular HGB Conc 30.6 GM/DL (32-36); Mean Corpuscular Hemoglobin 31 PG (27-34); Mean Corpuscular Volume 101.9 FL (87-102); Mean Platelet Volume 9.4 FL (9.6-12.0); Monocytes # 0.6 10*3/uL (0.11-0.8); Monocytes % 3.2 % (1.7-12.7); NRBC # 0.02 10*3/uL; Neutrophils # 17.5 10*3/uL (1.4-7.4); Neutrophils % 87.1 % (38.7-73.9); Platelet Count 263 T/CUMM (130-400); Red Blood Count 3.65 MC/CUMM (3.8-5.5); Red Cell Distribution Width 16.2 % (9.3-17.3); White Blood Count 20.1 T/CUMM (4-12)
[2018-08-14] MEDS ORDERED: NOREPINEPHRINE 4 MG/4 ML VIAL IV ONE (12:18)
[2018-08-14] MEDS ORDERED: SODIUM BICARBONATE 50 MEQ/50 ML SYRINGE IV ONE (12:22)
[2018-08-14] MEDS: NOREPINEPHRINE 8 MG in SODIUM CHLORIDE 0.9% 242 ML IV PRN ×3 (12:23→23:48)
[2018-08-14 12:54] LABS: Anisocytosis Slight; Band Neutrophils 8 % (0-10); Lymphocytes 8 % (20-55); Platelet Estimate Normal; Segmented Neutrophils 83 % (50-85); Total Cells Counted 100
[2018-08-14] MEDS: methylPREDNISolone SOD SUC 40 MG/1 ML VIAL IV SCH ×2 (13:25→20:15)
[2018-08-14] MEDS: ALBUTEROL/IPRATROPIUM 3 ML NEB RESP TX SCH ×2 (14:00→19:32)
[2018-08-14] MEDS: cefTAZidime 1,000 MG in SYRINGE 1 EACH IV SCH ×2 (14:37→23:10)
[2018-08-14 14:41] LABS: Apearance,Urine CLEAR (Clear); Bilirubin,Urine Negative (Negative); Blood, Urine Moderate mg/dL (Negative); Glucose,Urine (UA) Negative (Negative); Hyaline Casts,Urine 1 /LPF (0-3); Ketones,Urine Negative (Negative); Mucus,Urine Occasional /LPF (Occasional); Nitrite,Urine Negative (Negative); Protein,Urine 30 MG/DL; RBC,Urine 10 /HPF (0-4); Squamous Epithelial Cell,Urine Occasional /HPF (0-10); Urine Color Yellow (Yellow); Urine Specific Gravity 1.013 (1.001-1.035); Urine Urobilinogen < 2.0 EU/DL (0.2-1.0); WBC,Urine 10 /HPF (0-6)
[2018-08-14] MEDS: PROPOFOL 1,000 MG/100 ML BOTTLE IV SCH ×2 (18:09→20:16)
[2018-08-15] MEDS: ALBUTEROL/IPRATROPIUM 3 ML NEB RESP TX SCH ×4 (00:14→11:10)
[2018-08-15] MEDS: SODIUM CHLORIDE 0.9% 1,000 ML IV SCH ×2 (01:57→05:22)
[2018-08-15] MEDS: methylPREDNISolone SOD SUC 40 MG/1 ML VIAL IV SCH ×2 (02:02→09:43)
[2018-08-15] MEDS ORDERED: DEXTROSE 50% 25 GM/50 ML VIAL IV ONE (02:21)
[2018-08-15] MEDS: DEXTROSE 50% 25 GM/50 ML VIAL IV PRN ×2 (02:33→06:21)
[2018-08-15 03:55] LABS: Basophils # 0.1 10*3/uL (0.0-0.2); Basophils % 0.3 % (0.0-0.8); Hemoglobin 15.1 GM/DL (14.0-18.0); Immature Granulocytes % 2.1 %; Immature Granulocytes Absolute 0.37 #; Lymphocytes # 1.3 10*3/uL (1.4-4.0); Lymphocytes % 7.2 % (21.2-54.2); Mean Corpuscular HGB Conc 29.3 GM/DL (32-36); Mean Corpuscular Hemoglobin 31 PG (27-34); Mean Corpuscular Volume 106.2 FL (87-102); Mean Platelet Volume 10.5 FL (9.6-12.0); Monocytes # 0.6 10*3/uL (0.11-0.8); Monocytes % 3.2 % (1.7-12.7); NRBC # 0.03 10*3/uL; Neutrophils # 15.7 10*3/uL (1.4-7.4); Neutrophils % 87.2 % (38.7-73.9); Platelet Count 160 T/CUMM (130-400); Red Blood Count 4.85 MC/CUMM (3.8-5.5); Red Cell Distribution Width 16.8 % (9.3-17.3)
[2018-08-15 03:56] LABS: Hematocrit 51.5 VOL% (42.0-52.0)
[2018-08-15 04:25] LABS: Platelet Estimate Adequate; Polychromasia Few
[2018-08-15 04:34] LABS: Albumin 1.8 G/DL (3.4-5.0); Bilirubin,Total 1.9 MG/DL (0.2-1.0); Calcium 7.8 MG/DL (8.5-10.1); Osmolality,Calculated 290.6 MOS/KG (273-304); Potassium 5.5 MMOL/L (3.5-5.1); Total Protein 6.5 G/DL (6.4-8.3)
[2018-08-15 04:56] LABS: Allen Test Positive; Pt O2 Delivery Device Ventilator
[2018-08-15 04:57] LABS: ABG Base Excess -17.2 MMOL/L (-2.5-2.5); ABG HCO3 11.6 MMOL/L (20-26); ABG Oxygen Saturation 86.5 % (95-100); ABG PCO2 41.2 MM HG (35-48); ABG PO2 80.1 MM HG (80-95); ABG TCO2 11.8 MMOL/L (23-27)
[2018-08-15] MEDS: NOREPINEPHRINE 8 MG in SODIUM CHLORIDE 0.9% 242 ML IV PRN (05:53)
[2018-08-15] MEDS: cefTAZidime 1,000 MG in SYRINGE 1 EACH IV SCH (05:57)
[2018-08-15] MEDS ORDERED: SODIUM BICARB INJ 100 MEQ in DEXTROSE 5% NACL 0.45% 1,000 ML IV SCH (06:00)
[2018-08-15 06:58] VITALS: BP 108/82
[2018-08-15 08:34] LABS: Lactic Acid 12.2 MMOL/L (0.4-2.0)
[2018-08-15] MEDS: ASPIRIN CHEW 81 MG TABLET PO SCH (09:44)
[2018-08-15] MEDS ORDERED: FUROSEMIDE 40 MG/4 ML VIAL IV ONE (10:34)
[2018-08-15] MEDS ORDERED: ENOXAPARIN 30 MG/0.3 ML SYRINGE SUBCUT SCH (11:00)
[2018-08-15] MEDS ORDERED: LEVOFLOXACIN INJ 500 MG in PREMIX 1 EACH IV SCH (13:00)
== END 2018-08-15 14:05 | disposition expired | DRG 871 ==
LOC: EDUNIT# → EDBD → N.ED 09:19 → N.EDINP 09:39 → N.ICU 10:18
PROVIDERS: ADMIT Family Medicine; ATTEND Family Medicine